=== PATIENT | male | born 1950 | race Caucasian/White ===

== ENCOUNTER 2017-01-18 17:00 | Inpatient (IN) | payer BC, MEDICARE ==
[2017-01-18] MEDS ORDERED: NS 0.9% 1000 ML* 1,000 ML IV SCH (17:45)
[2017-01-18 18:05] LABS: Hematocrit 44 % (42-52); Hemoglobin 14.7 g/dl (14.0-18.0); Mean Corpuscular HGB Conc 34 g/dl (31-36); Mean Corpuscular Hemoglobin 30 pg (27-31); Mean Corpuscular Volume 90 fL (80-94); Mean Platelet Volume 8 um3 (7.4-10.4); Red Blood Count 4.87 10^6/ul (4.0-5.4); Red Cell Distribution Width 14 % (10.5-15); White Blood Count 8.7 10^3/ul (3.5-10.8)
--- NOTE | 2017-01-18 18:16 | RAD ---
INDICATION: Tachycardia COMPARISON: None TECHNIQUE: An AP portable view obtained at 1738 hours is submitted. FINDINGS: Bones/Soft Tissues: There are no acute bony findings. Cardiomediastinal: The cardiomediastinal silhouette is normal. Lungs: There are no infiltrates. Pleura: There are no pleural effusions. Other: None IMPRESSION: NO ACTIVE DISEASE.
[2017-01-18 18:31] LABS: Albumin 4.1 g/dL (3.2-5.2); BUN/Creatinine Ratio 17.5 (8-20); C Reactive Protein 5.32 mg/L (< 5.00); Calcium 9.4 mg/dL (8.6-10.3); EGFR African American 77.4 (>60); EGFR Non-African American 60.2 (>60); Potassium 4.3 mmol/L (3.5-5.0); Total Bilirubin 0.4 mg/dL (0.2-1.0); Total Protein 7.1 g/dL (6.4-8.9)
[2017-01-18 18:41] LABS: Urine Bilirubin Negative (Negative); Urine Glucose Negative (Negative); Urine Nitrite Negative (Negative)
[2017-01-18 19:08] LABS: TSH (Thyroid Stimulating Horm) 3.65 mcIU/mL (0.34-5.60)
[2017-01-18] MEDS ORDERED: Acetaminophen TAB* 325 MG PO PRN (19:40)
[2017-01-18] MEDS ORDERED: Albuterol 2.5 MG/3 ML NEB.SOL* (0.083%) INH PRN (19:40)
[2017-01-18] MEDS ORDERED: Ondansetron INJ* 2 MG/ML VIAL IV PRN (19:40)
[2017-01-18] MEDS ORDERED: CMCS: Melatonin (NF) 3 MG TAB PO PRN (19:40)
[2017-01-18] MEDS ORDERED: Apixaban* 5 MG TAB PO SCH (21:00)
[2017-01-18] MEDS: NS 0.9% 1000 ML* 1,000 ML IV SCH (21:14)
--- NOTE | 2017-01-18 21:52 | HP ---
H&P (Free Text) History and Physical: PCP: Anabell Hawley NP Cardiology: Eleazar Velasquez MD Date/Time: 01/18/20171939 CC: fatigue, SOB HPI: Mr Singh is a 67YO male HX pAFIB successfully cardioverted 01/05 who noted return of fatigue & SOB starting around the 16th and gradually worsening. He had a follow up with Eleazar Velasquez MD cardiology wherein he was found back in AFIB/AFLUT with a rapid response and referred to [facility] [place]. He denies chest pain, N/V, sweats, F/C, focal W/N/T, changes in speech/swallow, or changes in bowel/bladder. PMedHx pAFIB HTN ERMIAS on CPAP GERD metal foreign body L chest Ambulatory Orders Hydrochlorothiazide TAB* [Hydrodiuril TAB*] 25 tab PO DAILY 03/15/12 Omeprazole CAP* [Prilosec CAP* 20 MG] 20 mg PO DAILY 08/04/16 Apixaban* [Eliquis*] 5 mg PO BID 10/25/16 Acetaminophen [Acetaminophen Extra Stren] 500 mg PO Q6HR PRN 10/26/16 Ibuprofen TAB* [Advil TAB*] 200 - 400 tab PO Q6HR PRN 01/04/17 Aspirin EC Low Dose* [Ecotrin EC Low Dose 81 MG*] 81 mg PO DAILY 01/18/17 Allergies No Known Allergies Allergy (Verified 01/12/16 09:56) PSurgHx B inguinal hernia repairs tonsillectomy SocHx: intermittent/social smoking, no alcohol or recreational drugs; lives with his ; 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 Father passed in his 40s from CAD. 11 siblings; 3 passed from CAD, 1 passed of an unknown cancer, 1 passed of complications of diabetes, all but 2 other siblings have passed of uncertain causes ROS: as above, otherwise reviewed and all were negative vitals: Vital Signs Temp 36.8 C 01/18/17 23:19 Pulse 96 01/18/17 23:19 Resp 18 01/18/17 23:19 BP 117/77 01/18/17 23:19 Pulse Ox 97 01/18/17 23:19 Intake & Output 01/18/17 01/18/17 01/19/17 11:59 23:59 11:59 Intake Total 300 Output Total 0 Balance 300 Weight 87.906 kg Intake: IV Fluids 300 Oral 0 Output: Urine 0 Other: # Bowel Movements 0 Constitutional: NAD, normally developed, well-nourished white male HEENM: atraumatic; sclera/conjunctiva: non-icteric/clear; hearing: clinically intact; oropharynx: clear, mucosa moist Neck: soft tissue: non-tender; thyroid: normal Pulmonary: clear to auscultation bilaterally, good aeration, no accessory muscle use CV: IR/IR, normal S1S2, no carotid bruit, no jugular venous distention, 2+ B DP/ PT, no edema Abdominal: soft, non-distended, non-tender, no rebound/guarding/rigidity, normoactive bowel sounds, no hepatosplenomegaly or masses, no costovertebral angle tenderness Musculoskeletal: general: grossly intact; gait: stable Integumental: normal appearance and texture of exposed skin Psychiatric orientation: AA&O to PPS affect: calm mood: cooperative eye contact: good content: reliable responses: timely insight: good to fair Testing: Lab Results 01/18/17 01/18/17 01/18/17 Range/Units 17:57 17:57 17:57 WBC (3.5-10.8) 10^3/ul RBC (4.0-5.4) 10^6/ul Hgb (14.0-18.0) g/dl Hct (42-52) % MCV (80-94) fL MCH (27-31) pg MCHC (31-36) g/dl RDW (10.5-15) % Plt Count (150-450) 10^3/ul MPV (7.4-10.4) um3 Neut % (Auto) (38-83) % Lymph % (Auto) (25-47) % [place]oll[place] % (Auto) (1-9) % Eos % (Auto) (0-6) % Baso % (Auto) (0-2) % Absolute Neuts (auto) (1.5-7.7) 10^3/ul Absolute Lymphs (auto) (1.0-4.8) 10^3/ul Absolute Monos (auto) (0-0.8) 10^3/ul Absolute Eos (auto) (0-0.6) 10^3/ul Absolute Basos (auto) (0-0.2) 10^3/ul Absolute Nucleated RBC 10^3/ul Nucleated RBC % INR (Anticoag Therapy) 0.98 (0.89-1.11) APTT 33.4 (26.0-36.3) seconds D-Dimer, Quantitative < 200 (Less Than 230) ng/mL Sodium 136 (133-145) mmol/L Potassium 4.3 (3.5-5.0) mmol/L Chloride 102 (101-111) mmol/L Carbon Dioxide 28 (22-32) mmol/L Anion Gap 6 (2-11) mmol/L BUN 21 (6-24) mg/dL Creatinine 1.20 H (0.67-1.17) mg/dL Est GFR ( Amer) 77.4 (>60) Est GFR (Non-Af Amer) 60.2 (>60) BUN/Creatinine Ratio 17.5 (8-20) Glucose 86 (70-100) mg/dL Lactic Acid (0.5-2.0) mmol/L Calcium 9.4 (8.6-10.3) mg/dL Magnesium 2.0 (1.9-2.7) mg/dL Total Bilirubin 0.40 (0.2-1.0) mg/dL AST 14 (13-39) U/L ALT 11 (7-52) U/L Alkaline Phosphatase 75 (34-104) U/L Total Creatine Kinase 61 (10-223) U/L CK-MB (CK-2) 2.7 (0.6-6.3) ng/mL Troponin I 0.00 (<0.04) ng/mL C-Reactive Protein 5.32 H (< 5.00) mg/L B-Natriuretic Peptide 96 ( - 100) pg/mL Total Protein 7.1 (6.4-8.9) g/dL Albumin 4.1 (3.2-5.2) g/dL Globulin 3.0 (2-4) g/dL Albumin/Globulin Ratio 1.4 (1-3) Lipase 29 (11.0-82.0) U/L TSH 3.65 (0.34-5.60) mcIU/mL Urine Color Urine Appearance Urine pH (5-9) Ur Specific [place] (1.010-1.030) Urine Protein (Negative) Urine Ketones (Negative) Urine Blood (Negative) Urine Nitrate (Negative) Urine Bilirubin (Negative) Urine Urobilinogen (Negative) Ur Leukocyte Esterase (Negative) Urine Glucose (Negative) 01/18/17 01/18/17 01/18/17 Range/Units 17:57 17:57 18:25 WBC 8.7 (3.5-10.8) 10^3/ul RBC 4.87 (4.0-5.4) 10^6/ul Hgb 14.7 (14.0-18.0) g/dl Hct 44 (42-52) % MCV 90 (80-94) fL MCH 30 (27-31) pg MCHC 34 (31-36) g/dl RDW 14 (10.5-15) % Plt Count 244 (150-450) 10^3/ul MPV 8 (7.4-10.4) um3 Neut % (Auto) 59.9 (38-83) % Lymph % (Auto) 28.1 (25-47) % [place]oll[place] % (Auto) 9.2 H (1-9) % Eos % (Auto) 2.1 (0-6) % Baso % (Auto) 0.7 (0-2) % Absolute Neuts (auto) 5.2 (1.5-7.7) 10^3/ul Absolute Lymphs (auto) 2.5 (1.0-4.8) 10^3/ul Absolute Monos (auto) 0.8 (0-0.8) 10^3/ul Absolute Eos (auto) 0.2 (0-0.6) 10^3/ul Absolute Basos (auto) 0.1 (0-0.2) 10^3/ul Absolute Nucleated RBC 0.01 10^3/ul Nucleated RBC % 0.1 INR (Anticoag Therapy) (0.89-1.11) APTT (26.0-36.3) seconds D-Dimer, Quantitative (Less Than 230) ng/mL Sodium (133-145) mmol/L Potassium (3.5-5.0) mmol/L Chloride (101-111) mmol/L Carbon Dioxide (22-32) mmol/L Anion Gap (2-11) mmol/L BUN (6-24) mg/dL Creatinine (0.67-1.17) mg/dL Est GFR ( Amer) (>60) Est GFR (Non-Af Amer) (>60) BUN/Creatinine Ratio (8-20) Glucose (70-100) mg/dL Lactic Acid 1.0 (0.5-2.0) mmol/L Calcium (8.6-10.3) mg/dL Magnesium (1.9-2.7) mg/dL Total Bilirubin (0.2-1.0) mg/dL AST (13-39) U/L ALT (7-52) U/L Alkaline Phosphatase (34-104) U/L Total Creatine Kinase (10-223) U/L CK-MB (CK-2) (0.6-6.3) ng/mL Troponin I (<0.04) ng/mL C-Reactive Protein (< 5.00) mg/L B-Natriuretic Peptide ( - 100) pg/mL Total Protein (6.4-8.9) g/dL Albumin (3.2-5.2) g/dL Globulin (2-4) g/dL Albumin/Globulin Ratio (1-3) Lipase (11.0-82.0) U/L TSH (0.34-5.60) mcIU/mL Urine Color Yellow Urine Appearance Clear Urine pH 5.0 (5-9) Ur Specific [place] 1.012 (1.010-1.030) Urine Protein Negative (Negative) Urine Ketones Negative (Negative) Urine Blood Negative (Negative) Urine Nitrate Negative (Negative) Urine Bilirubin Negative (Negative) Urine Urobilinogen Negative (Negative) Ur Leukocyte Esterase Negative (Negative) Urine Glucose Negative (Negative) ECG, personally reviewed: AFIB/AFLUT rate 87, no ischemia CXR, personally reviewed: IMPRESSION: NO ACTIVE DISEASE. Impression: 67M presenting with symptomatic AFIB/AFLUT DIAGNOSIS & PLAN Primary symptomatic AFIB/AFLUT : continue apixaban : telemetry : Eleazar Velasquez MD cardiology sent from office, consulted : plan cardioversion in AM : supplemental oxygen : supportive care Secondary HTN : review meds once reconciled ERMIAS : continue home CPAP GERD : review meds once reconciled Admission Rational: observation for AFIB DVTp: apixaban Code Status: full HCP:
[2017-01-18] MEDS: Docusate CAP* 100 MG PO SCH (21:56)
--- NOTE | 2017-01-19 00:04 | ED ---
Elizabeth Sinha Alfonso, scribed for Bartolo Fuentes MD on 01/18/17 at 1804 . Shortness of Breath - HPI Summary HPI Summary: This patient is a 67 year old M presenting [facility] refe[place] from Dr. English (investment sales assistant) accompanied by a female with a chief complaint of SOB since earlier today. He was cardioverted on 01/05/17 for A-Fib. The patient rates the pain 0/10 in severity. Symptoms aggravated by nothing. Symptoms alleviated by nothing. Patient reports tiredness and peripheral neuropathy. Patient denies palpitations, CP, calf swelling, and dizziness. - History of Current Complaint Chief Complaint: EDDysrhythmPalp Time Seen by Provider: 01/18/17 17:37 Hx Obtained From: Patient Onset/Duration: Sudden Onset, Lasting Hours, Still Present Timing: Constant Aggrevating Factors: Nothing Alleviating Factors: Nothing Associated Signs & Symptoms: Negative - Allergy/Home Medications Allergies/Adverse Reactions: Allergies Allergy/AdvReac Type Severity Reaction Status Date / Time No Known Allergies Allergy Verified 01/12/16 09:56 Home Medications: Home Medications Aspirin EC Low Dose* [Ecotrin EC Low Dose 81 MG*] 81 mg PO DAILY 01/18/17 [ History Confirmed 01/18/17] PMH/Surg Hx/FS Hx/Imm Hx Cardiovascular History: Reports: Hx Hypertension Denies: Hx Pacemaker/ICD Respiratory History: Reports: Hx Sleep Apnea - current CPAP user Musculoskeletal History: Reports: Other Musculoskeletal History - chronic pain Sensory History: Reports: Hx Contacts or Glasses Denies: Hx Hearing Aid Opthamlomology History: Reports: Hx Contacts or Glasses Denies: Hx Legally Blind EENT History: Denies: Hx Deafness Neurological History: Reports: Other Neuro Impairments/Disorders - pain clinic pt Psychiatric History: Denies: Hx Panic Disorder - Surgical History Surgery Procedure, Year, and Place: hernia repair x 2,. tonsilectomy,. chest tube left r/t trauma 1968 FROM [facility]Y SEE NOTES - PT OKAY SENT TO 1.5 T Infectious Disease History: No Infectious Disease History: Denies: Traveled Outside the [place] in Last 30 Days - Family History Known Family History: Positive: Cardiac Disease - [place] father - Social History Alcohol Use: None Substance Use Type: Reports: None Smoking Status (MU): Former Smoker Review of Systems Positive: Other - tiredness Negative: Palpitations, Chest Pain Positive: Shortness Of Breath Negative: Edema Neurological: Other - peripheral neuropathy; negative dizziness All Other Systems Reviewed And Are Negative: Yes Physical Exam - Summary Physical Exam Summary: General: well-appearing, no pain distress Skin: warm, color reflects adequate perfusion, dry Head: normal Eyes: EOMI, RUPERTO ENT: normal Neck: supple, nontender Respiratory: CTA, breath sounds present Cardiovascular: IRR Abdomen: soft, nontender Bowel: present Musculoskeletal: normal, strength/ROM intact Neurological: normal, sensory/motor intact, A&O x3 Psychological: affect/mood appropriate Triage Information Reviewed: Yes Vital Signs On Initial Exam: Initial Vitals Temp Pulse Resp BP Pulse Ox 97.4 F 91 20 133/89 93 01/18/17 17:04 01/18/17 17:04 01/18/17 17:04 01/18/17 17:04 01/18/17 17:04 Vital Signs Reviewed: Yes - [place] Coma Scale Coma Scale Total: 15 Diagnostics - Vital Signs Vital Signs Temp Pulse Resp BP Pulse Ox 01/18/17 17:24 89 97 01/18/17 17:04 97.4 F 91 20 133/89 93 - Laboratory Lab Results: Lab Results 01/18/17 01/18/17 01/18/17 Range/Units 17:57 17:57 17:57 WBC (3.5-10.8) 10^3/ul RBC (4.0-5.4) 10^6/ul Hgb (14.0-18.0) g/dl Hct (42-52) % MCV (80-94) fL MCH (27-31) pg MCHC (31-36) g/dl RDW (10.5-15) % Plt Count (150-450) 10^3/ul MPV (7.4-10.4) um3 Neut % (Auto) (38-83) % Lymph % (Auto) (25-47) % Hill % (Auto) (1-9) % Eos % (Auto) (0-6) % Baso % (Auto) (0-2) % Absolute Neuts (auto) (1.5-7.7) 10^3/ul Absolute Lymphs (auto) (1.0-4.8) 10^3/ul Absolute Monos (auto) (0-0.8) 10^3/ul Absolute Eos (auto) (0-0.6) 10^3/ul Absolute Basos (auto) (0-0.2) 10^3/ul Absolute Nucleated RBC 10^3/ul Nucleated RBC % INR (Anticoag Therapy) 0.98 (0.89-1.11) APTT 33.4 (26.0-36.3) seconds D-Dimer, Quantitative < 200 (Less Than 230) ng/mL Sodium 136 (133-145) mmol/L Potassium 4.3 (3.5-5.0) mmol/L Chloride 102 (101-111) mmol/L Carbon Dioxide 28 (22-32) mmol/L Anion Gap 6 (2-11) mmol/L BUN 21 (6-24) mg/dL Creatinine 1.20 H (0.67-1.17) mg/dL Est GFR ( Amer) 77.4 (>60) Est GFR (Non-Af Amer) 60.2 (>60) BUN/Creatinine Ratio 17.5 (8-20) Glucose 86 (70-100) mg/dL Lactic Acid (0.5-2.0) mmol/L Calcium 9.4 (8.6-10.3) mg/dL Magnesium 2.0 (1.9-2.7) mg/dL Total Bilirubin 0.40 (0.2-1.0) mg/dL AST 14 (13-39) U/L ALT 11 (7-52) U/L Alkaline Phosphatase 75 (34-104) U/L Total Creatine Kinase 61 (10-223) U/L CK-MB (CK-2) 2.7 (0.6-6.3) ng/mL Troponin I 0.00 (<0.04) ng/mL C-Reactive Protein 5.32 H (< 5.00) mg/L B-Natriuretic Peptide 96 ( - 100) pg/mL Total Protein 7.1 (6.4-8.9) g/dL Albumin 4.1 (3.2-5.2) g/dL Globulin 3.0 (2-4) g/dL Albumin/Globulin Ratio 1.4 (1-3) Lipase 29 (11.0-82.0) U/L TSH 3.65 (0.34-5.60) mcIU/mL Urine Color Urine Appearance Urine pH (5-9) Ur Specific [place] (1.010-1.030) Urine Protein (Negative) Urine Ketones (Negative) Urine Blood (Negative) Urine Nitrate (Negative) Urine Bilirubin (Negative) Urine Urobilinogen (Negative) Ur Leukocyte Esterase (Negative) Urine Glucose (Negative) 01/18/17 01/18/17 01/18/17 Range/Units 17:57 17:57 18:25 WBC 8.7 (3.5-10.8) 10^3/ul RBC 4.87 (4.0-5.4) 10^6/ul Hgb 14.7 (14.0-18.0) g/dl Hct 44 (42-52) % MCV 90 (80-94) fL MCH 30 (27-31) pg MCHC 34 (31-36) g/dl RDW 14 (10.5-15) % Plt Count 244 (150-450) 10^3/ul MPV 8 (7.4-10.4) um3 Neut % (Auto) 59.9 (38-83) % Lymph % (Auto) 28.1 (25-47) % Hill % (Auto) 9.2 H (1-9) % Eos % (Auto) 2.1 (0-6) % Baso % (Auto) 0.7 (0-2) % Absolute Neuts (auto) 5.2 (1.5-7.7) 10^3/ul Absolute Lymphs (auto) 2.5 (1.0-4.8) 10^3/ul Absolute Monos (auto) 0.8 (0-0.8) 10^3/ul Absolute Eos (auto) 0.2 (0-0.6) 10^3/ul Absolute Basos (auto) 0.1 (0-0.2) 10^3/ul Absolute Nucleated RBC 0.01 10^3/ul Nucleated RBC % 0.1 INR (Anticoag Therapy) (0.89-1.11) APTT (26.0-36.3) seconds D-Dimer, Quantitative (Less Than 230) ng/mL Sodium (133-145) mmol/L Potassium (3.5-5.0) mmol/L Chloride (101-111) mmol/L Carbon Dioxide (22-32) mmol/L Anion Gap (2-11) mmol/L BUN (6-24) mg/dL Creatinine (0.67-1.17) mg/dL Est GFR ( Amer) (>60) Est GFR (Non-Af Amer) (>60) BUN/Creatinine Ratio (8-20) Glucose (70-100) mg/dL Lactic Acid 1.0 (0.5-2.0) mmol/L Calcium (8.6-10.3) mg/dL Magnesium (1.9-2.7) mg/dL Total Bilirubin (0.2-1.0) mg/dL AST (13-39) U/L ALT (7-52) U/L Alkaline Phosphatase (34-104) U/L Total Creatine Kinase (10-223) U/L CK-MB (CK-2) (0.6-6.3) ng/mL Troponin I (<0.04) ng/mL C-Reactive Protein (< 5.00) mg/L B-Natriuretic Peptide ( - 100) pg/mL Total Protein (6.4-8.9) g/dL Albumin (3.2-5.2) g/dL Globulin (2-4) g/dL Albumin/Globulin Ratio (1-3) Lipase (11.0-82.0) U/L TSH (0.34-5.60) mcIU/mL Urine Color Yellow Urine Appearance Clear Urine pH 5.0 (5-9) Ur Specific [place] 1.012 (1.010-1.030) Urine Protein Negative (Negative) Urine Ketones Negative (Negative) Urine Blood Negative (Negative) Urine Nitrate Negative (Negative) Urine Bilirubin Negative (Negative) Urine Urobilinogen Negative (Negative) Ur Leukocyte Esterase Negative (Negative) Urine Glucose Negative (Negative) Result Diagrams: 01/18/17 17:57 01/18/17 17:57 Lab Statement: Any lab studies that have been ordered have been reviewed, and results considered in the medical decision making process. - Radiology CXR Radiology Interpretation Completed By: Radiologist - NO ACTIVE DISEASE. ED physician has reviewed this radiology report and agrees. - EKG 1759 Cardiac Rate: NL - BPM 97 EKG Rhythm: Atrial Fibrillation ST Segment: Normal Course/Dx - Course Course Of Treatment: DISCUSSED WITH DR ENGLISH. PATIENT HAS SYMPTOMATIC ATRIAL FLUTTER. ADMIT HOSPITALIST. NO CRITICAL CARE TIME. - Diagnoses Provider Diagnoses: Atrial flutter, Dyspnea - Physician Notifications Discussed Care of Patient With: Raf Ballesteros Time Discussed With Above Provider: 19:16 Instructed by Provider To: Other - Consulted Dr. Ballesteros (hospitalist) who agrees to admit. Discharge - Discharge Plan Condition: Stable Disposition: ADMITTED TO [facility] documentation as recorded by the Elizabeth renteria Alfonso accurately reflects the service I personally performed and the decisions made by me, Bartolo Fuentes MD.
[2017-01-19] MEDS: Apixaban* 5 MG TAB PO SCH ×2 (05:46→17:51)
[2017-01-19] MEDS: NS 0.9% 1000 ML* 1,000 ML IV SCH (05:47)
[2017-01-19] MEDS: Docusate CAP* 100 MG PO SCH (09:29)
[2017-01-19] MEDS: Aspirin EC Low Dose* 81 MG TAB.EC PO SCH (09:35)
[2017-01-19] MEDS: Omeprazole CAP* 20 MG PO SCH (09:35)
[2017-01-19] MEDS: Hydrochlorothiazide TAB* 25 MG PO SCH (09:35)
[2017-01-19] MEDS ORDERED: Midazolam* 1 MG/ML 5 ML VIAL (5 MG) ONE (12:29)
[2017-01-19] MEDS ORDERED: fentaNYL* 50 MCG/ML 2 ML VIAL (100 MCG VIAL) ONE (12:29)
[2017-01-19] MEDS ORDERED: Naloxone* 0.4 MG/ML 1 ML VIAL ONE (12:29)
[2017-01-19] MEDS ORDERED: Flumazenil* 0.1 MG/ML 5 ML MDV ONE (12:29)
[2017-01-19] MEDS ORDERED: proPAFENone TAB* 150 MG PO SCH (12:49)
--- NOTE | 2017-01-19 16:00 | CONS ---
CC: Dr. Velasquez; Cherelle Hawley NP* CONSULTATION REPORT: DATE OF CONSULT: 01/19/17 REASON FOR CONSULT: Atrial fibrillation. CHIEF COMPLAINT: Shortness of breath. HISTORY OF PRESENT ILLNESS: Mr. Singh is a 67-year-old male with a history of paroxysmal atrial fibrillation, followed by Dr. Velasquez. The patient's atrial fibrillation was initially found in summer by his primary care practitioner, he was asymptomatic. It persisted and the patient was placed on anticoagulation, underwent cardioversion earlier this month. The patient has been doing yard work, raking leaves, and a few days after raking leaves, the patient noted that he was short of breath. An EKG in Dr. Velasquez's office yesterday revealed he is back in atrial fibrillation and the patient was referred for admission and cardioversion. PAST MEDICAL HISTORY: Paroxysmal atrial fibrillation; obstructive sleep apnea, on CPAP; hypertension; reflux; foreign body in the left chest related to an accident in year in high school chopping wood; history of diverticulosis. PAST SURGICAL HISTORY: Includes inguinal hernia repair, tonsillectomy, and removal of piece of metal from the lung, 1966. MEDICATIONS: Outpatient medications include: 1. Hydrochlorothiazide 25 mg a day. 2. Aspirin 81 mg a day. 3. Eliquis 5 mg b.i.d. 4. Albuterol inhaler p.r.n. 5. Colace 200 mg b.i.d. 6. Melatonin 3 mg q.h.s. p.r.n. insomnia. 7. Prilosec 20 mg a day. 8. Zofran p.r.n. 9. Sodium chloride. 10. He uses CPAP nightly. ALLERGIES: The patient has no known medication allergies. FAMILY HISTORY: His father of heart attack at age 50. His mother of "old age" at 78. He has 6 siblings. He had a brother, who of unknown etiology. His sister who had muscular dystrophy and . One sister with coronary artery disease and another sister with diabetes and hypertension and at age 77. A sister who at age 79 of an unknown cancer, then another sister who . SOCIAL HISTORY: The patient is , lives with his . 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 He has been a smoker, ongoing. Rare alcohol use, none recently. REVIEW OF SYSTEMS: A 12-point review of systems was performed. He denies missing any medications. He has been using his CPAP regularly. No recent fevers, chills, sweats. No recent change in bowel or bladder habits. He has been taking his Eliquis faithfully. He denies orthopnea, PND, chest pain or pressure, heaviness, and he is not aware of palpitations, just the shortness of breath with activity. All other review of systems was unremarkable. PHYSICAL EXAM: The patient is 6 feet with 193 pounds with a BMI of 26. Blood pressure currently 116/75; pulse 80s to 90s, irregularly irregular; temperature 98.2; oxygen saturation 98% on room air. General Appearance: Lean, somewhat older gentleman, in no acute distress. Lying at 30 to 40 degrees, comfortable. Psychologically, pleasant and cooperative. Neurologically, awake, alert, oriented to person, place, and time. Cranial nerves II through XII intact. Grossly normal sensory and motor function in the upper and lower extremities, gait not checked. He was examined in the hospital bed. HEENT: Pupils are equal and round. Mucous membranes moist. Oral mucosa unremarkable. Neck: Without appreciable or increased JVP or thyromegaly. Breath sounds were very distant, but clear. No wheezing, rales, or rhonchi. Coronary: S1 and S2, irregularly irregular. No murmurs appreciated. Abdomen: Flat, active bowel sounds, soft. Nontender. No hepatomegaly. Lower extremities were free of edema and lukewarm. Distal pulses were hard to get. DIAGNOSTIC STUDIES/LAB DATA: Echo from 11/18/16, showed ejection fraction of 50 % to 55% with mild right ventricular hypokinesis, biatrial enlargement, mild-to - moderate tricuspid insufficiency, moderate pulmonary hypertension. Transesophageal echo, 10/26/16, showed an ejection fraction of 50% to 55% with spontaneous contrast in the left atrial appendage and decreased velocity in the left atrial appendage, no thrombus noted. He had a patent foramen ovale noted by color Doppler. [id number]-arhz mitral, [id number] tricuspid insufficiency. A 12-lead ECG today confirms atrial fibrillation with a ventricular rate of 95 beats a minute, QRS axis +90, normal intraventricular conduction times, and ST segments are unremarkable. White count 8.7, hemoglobin 14.7, hematocrit 44, platelets 244. INR 0.98, PTT 33.4. Sodium 136, potassium 4.3, chloride 102, bicarb 28, BUN 21, creatinine 1.2, glucose 86. ALT of 11. C-reactive protein 5.32. Troponin 0.00. TSH 3.65. Urinalysis: Specific gravity 1.02, pH of 5. Chest x-ray in the emergency department showed no active disease. Stress test in Dr. Velasquez's office, per verbal report from Dr. Velasquez showed no evidence of ischemia. IMPRESSION: In summary, Mr. Singh is a 67-year-old gentleman, found in atrial fibrillation this summer incidentally, he underwent cardioversion on , but this was only briefly successful and he is now back in atrial fibrillation. PLAN: Electrical cardioversion and initiation of an antiarrhythmic. As per discussion with Dr. Velasquez, propafenone or flecainide are options, I will initiate him on propafenone. Additional recommendations will be made pending his response to the above measures. [id number]/[facility] #: [id number] [facility] [place]
--- NOTE | 2017-01-19 17:41 | PN ---
Subjective Date of Service: 01/19/17 Interval History: Patient was asymptomatic during this episode of atrial fib/flutter. Objective Active Medications: Acetaminophen (Tylenol Tab*) 650 mg PO Q6H PRN PRN Reason: FEVER/PAIN Albuterol (Ventolin 2.5 Mg/3 Ml Neb.Kendy*) 2.5 mg INH Q2H PRN PRN Reason: SOB/WHEEZING Apixaban (Eliquis*) 5 mg PO 0600,1800 [facility] Last Admin: 01/19/17 05:46 Dose: 5 mg Aspirin (Aspirin Ec Low Dose*) 81 mg PO DAILY [facility] Last Admin: 01/19/17 09:35 Dose: 81 mg Hydrochlorothiazide (Hydrodiuril Tab*) 25 mg PO DAILY [facility] Last Admin: 01/19/17 09:35 Dose: 25 mg Omeprazole (Prilosec Cap*) 20 mg PO DAILY@0730 [facility] Last Admin: 01/19/17 09:35 Dose: 20 mg Propafenone HCl (Rythmol*) 150 mg PO Q12HR [facility] Vital Signs 01/19/17 14:06 Temperature 97.0 F Pulse Rate 62 Respiratory 16 Rate Blood Pressure 118/74 (mmHg) O2 Sat by Pulse 100 Oximetry Oxygen Devices in Use Now: None Appearance: Alert, sitting on the edge of his bed. In good spirits. Looks comfortable. Eyes: No Scleral Icterus Neck: NL Appearance and Movements; NL JVP, No Thyroid Enlargement, Masses Respiratory: Symmetrical Chest Expansion and Respiratory Effort, Clear to Auscultation, Clear to Percussion Cardiovascular: NL Sounds; No Murmurs; No JVD, RRR, No Edema Extremities: No Edema, No Clubbing, Cyanosis, - Skin: No Rash or Ulcers, No Nodules or Sclerosis, - Neurological: Alert and Oriented x 3, NL Sensation Result Diagrams: 01/18/17 17:57 01/18/17 17:57 Additional Lab and Data: Lab Results 01/18/17 01/18/17 01/18/17 Range/Units 17:57 17:57 17:57 WBC (3.5-10.8) 10^3/ul RBC (4.0-5.4) 10^6/ul Hgb (14.0-18.0) g/dl Hct (42-52) % MCV (80-94) fL MCH (27-31) pg MCHC (31-36) g/dl RDW (10.5-15) % Plt Count (150-450) 10^3/ul MPV (7.4-10.4) um3 Neut % (Auto) (38-83) % Lymph % (Auto) (25-47) % [place] % (Auto) (1-9) % Eos % (Auto) (0-6) % Baso % (Auto) (0-2) % Absolute Neuts (auto) (1.5-7.7) 10^3/ul Absolute Lymphs (auto) (1.0-4.8) 10^3/ul Absolute Monos (auto) (0-0.8) 10^3/ul Absolute Eos (auto) (0-0.6) 10^3/ul Absolute Basos (auto) (0-0.2) 10^3/ul Absolute Nucleated RBC 10^3/ul Nucleated RBC % INR (Anticoag Therapy) 0.98 (0.89-1.11) APTT 33.4 (26.0-36.3) seconds D-Dimer, Quantitative < 200 (Less Than 230) ng/mL Sodium 136 (133-145) mmol/L Potassium 4.3 (3.5-5.0) mmol/L Chloride 102 (101-111) mmol/L Carbon Dioxide 28 (22-32) mmol/L Anion Gap 6 (2-11) mmol/L BUN 21 (6-24) mg/dL Creatinine 1.20 H (0.67-1.17) mg/dL Est GFR ( Amer) 77.4 (>60) Est GFR (Non-Af Amer) 60.2 (>60) BUN/Creatinine Ratio 17.5 (8-20) Glucose 86 (70-100) mg/dL Lactic Acid (0.5-2.0) mmol/L Calcium 9.4 (8.6-10.3) mg/dL Magnesium 2.0 (1.9-2.7) mg/dL Total Bilirubin 0.40 (0.2-1.0) mg/dL AST 14 (13-39) U/L ALT 11 (7-52) U/L Alkaline Phosphatase 75 (34-104) U/L Total Creatine Kinase 61 (10-223) U/L CK-MB (CK-2) 2.7 (0.6-6.3) ng/mL Troponin I 0.00 (<0.04) ng/mL C-Reactive Protein 5.32 H (< 5.00) mg/L B-Natriuretic Peptide 96 ( - 100) pg/mL Total Protein 7.1 (6.4-8.9) g/dL Albumin 4.1 (3.2-5.2) g/dL Globulin 3.0 (2-4) g/dL Albumin/Globulin Ratio 1.4 (1-3) Lipase 29 (11.0-82.0) U/L TSH 3.65 (0.34-5.60) mcIU/mL Urine Color Urine Appearance Urine pH (5-9) Ur Specific [place] (1.010-1.030) Urine Protein (Negative) Urine Ketones (Negative) Urine Blood (Negative) Urine Nitrate (Negative) Urine Bilirubin (Negative) Urine Urobilinogen (Negative) Ur Leukocyte Esterase (Negative) Urine Glucose (Negative) 01/18/17 01/18/17 01/18/17 Range/Units 17:57 17:57 18:25 WBC 8.7 (3.5-10.8) 10^3/ul RBC 4.87 (4.0-5.4) 10^6/ul Hgb 14.7 (14.0-18.0) g/dl Hct 44 (42-52) % MCV 90 (80-94) fL MCH 30 (27-31) pg MCHC 34 (31-36) g/dl RDW 14 (10.5-15) % Plt Count 244 (150-450) 10^3/ul MPV 8 (7.4-10.4) um3 Neut % (Auto) 59.9 (38-83) % Lymph % (Auto) 28.1 (25-47) % Gaston % (Auto) 9.2 H (1-9) % Eos % (Auto) 2.1 (0-6) % Baso % (Auto) 0.7 (0-2) % Absolute Neuts (auto) 5.2 (1.5-7.7) 10^3/ul Absolute Lymphs (auto) 2.5 (1.0-4.8) 10^3/ul Absolute Monos (auto) 0.8 (0-0.8) 10^3/ul Absolute Eos (auto) 0.2 (0-0.6) 10^3/ul Absolute Basos (auto) 0.1 (0-0.2) 10^3/ul Absolute Nucleated RBC 0.01 10^3/ul Nucleated RBC % 0.1 INR (Anticoag Therapy) (0.89-1.11) APTT (26.0-36.3) seconds D-Dimer, Quantitative (Less Than 230) ng/mL Sodium (133-145) mmol/L Potassium (3.5-5.0) mmol/L Chloride (101-111) mmol/L Carbon Dioxide (22-32) mmol/L Anion Gap (2-11) mmol/L BUN (6-24) mg/dL Creatinine (0.67-1.17) mg/dL Est GFR ( Amer) (>60) Est GFR (Non-Af Amer) (>60) BUN/Creatinine Ratio (8-20) Glucose (70-100) mg/dL Lactic Acid 1.0 (0.5-2.0) mmol/L Calcium (8.6-10.3) mg/dL Magnesium (1.9-2.7) mg/dL Total Bilirubin (0.2-1.0) mg/dL AST (13-39) U/L ALT (7-52) U/L Alkaline Phosphatase (34-104) U/L Total Creatine Kinase (10-223) U/L CK-MB (CK-2) (0.6-6.3) ng/mL Troponin I (<0.04) ng/mL C-Reactive Protein (< 5.00) mg/L B-Natriuretic Peptide ( - 100) pg/mL Total Protein (6.4-8.9) g/dL Albumin (3.2-5.2) g/dL Globulin (2-4) g/dL Albumin/Globulin Ratio (1-3) Lipase (11.0-82.0) U/L TSH (0.34-5.60) mcIU/mL Urine Color Yellow Urine Appearance Clear Urine pH 5.0 (5-9) Ur Specific [place] 1.012 (1.010-1.030) Urine Protein Negative (Negative) Urine Ketones Negative (Negative) Urine Blood Negative (Negative) Urine Nitrate Negative (Negative) Urine Bilirubin Negative (Negative) Urine Urobilinogen Negative (Negative) Ur Leukocyte Esterase Negative (Negative) Urine Glucose Negative (Negative) Assess/Plan/Problems-Billing Assessment: - Patient Problems (1) Atrial fib/flutter, transient Current Visit: Yes Status: Acute Code(s): OJD5494 - SNOMED Code(s): 568439845 Comment: Successful cardioversion 01/19, required 2 shocks. His second cardioversion. He was not aware of palpitations but had increased LEBLANC, less stamina, was tired for past week or so. First dose propafenone 1430, had V-tach 7 beats 1637. Dose reduced by Dr. Milian to 150 mg bid. (2) ERMIAS on CPAP Current Visit: Yes Status: Acute Code(s): G47.33 - OBSTRUCTIVE SLEEP APNEA ( ADULT) (PEDIATRIC); Z99.89 - DEPENDENCE ON OTHER ENABLING MACHINES AND DEVICES SNOMED Code(s): 14712685 Comment: Patient brought in his CPAP, uses it every night for the duration of his sleep. (3) Tobacco abuse Current Visit: Yes Status: Acute Code(s): Z72.0 - TOBACCO USE SNOMED Code( s): 837750353 Comment: Pt states last cigarette 3 weeks ago. Pt advised to quit smoking and avoid second hand smoke. (4) HTN (hypertension) Current Visit: Yes Status: Acute Code(s): I10 - ESSENTIAL (PRIMARY) HYPERTENSION SNOMED Code(s): 48169353 Comment: Continue thiazide (5) GERD (gastroesophageal reflux disease) Current Visit: Yes Status: Acute Code(s): K21.9 - GASTRO-ESOPHAGEAL REFLUX DISEASE WITHOUT ESOPHAGITIS SNOMED Code(s): 663629224 Comment: Continue omeprazole.
[2017-01-19] MEDS: proPAFENone TAB* 150 MG PO SCH (23:11)
--- NOTE | 2017-01-19 23:55 | CARD ---
CC: Dr. Velasquez* ELECTRICAL CARDIOVERSION NOTE: DATE OF CARDIOVERSION: 01/19/17 PREPROCEDURE DIAGNOSIS: Atrial fibrillation. POSTPROCEDURE DIAGNOSIS: Atrial fibrillation. PROCEDURE: Electrical cardioversion. PROCEDURE IN DETAIL: The indications, risks, and benefits of the procedure were discussed with the patient in the presence of his . They were both amenable to proceeding. He said he has been faithful with his Eliquis. AP patches were applied and a time-out procedure was called. The patient received a total of 5 mg of Versed and 50 mcg of fentanyl. After that, a 120 joules of energy was delivered across the chest wall with AP patches with successful cardioversion; however, this did not hold more than a few seconds. The procedure was repeated with 200 joules of energy and was successful and maintained. CONCLUSION: Successful cardioversion requiring 2 shocks. The patient's post recovery period was complicated by mild apnea, which responded to coaching. No other complications were noted. He was hemodynamically stable throughout with normal saturations, blood pressure and heart rate. A 12 lead ECG was pending. [id number]/[facility] #: [id number] [facility]
[2017-01-20] MEDS: Apixaban* 5 MG TAB PO SCH ×2 (05:32→18:18)
[2017-01-20] MEDS ORDERED: Influenza VAC *QUAD* 2017-18* 0.5 ML SYRINGE IM ONE (09:00)
[2017-01-20] MEDS: Omeprazole CAP* 20 MG PO SCH (09:14)
[2017-01-20] MEDS: Aspirin EC Low Dose* 81 MG TAB.EC PO SCH (09:14)
[2017-01-20] MEDS: Hydrochlorothiazide TAB* 25 MG PO SCH (09:14)
[2017-01-20] MEDS: proPAFENone TAB* 150 MG PO SCH ×2 (09:15→20:58)
--- NOTE | 2017-01-20 12:12 | PN ---
Subjective Date of Service: 01/20/17 Interval History: NO c/o. Objective Active Medications: Acetaminophen (Tylenol Tab*) 650 mg PO Q6H PRN PRN Reason: FEVER/PAIN Albuterol (Ventolin 2.5 Mg/3 Ml Neb.Kendy*) 2.5 mg INH Q2H PRN PRN Reason: SOB/WHEEZING Apixaban (Eliquis*) 5 mg PO 0600,1800 [facility] Last Admin: 01/20/17 05:32 Dose: 5 mg Aspirin (Aspirin Ec Low Dose*) 81 mg PO DAILY [facility] Last Admin: 01/20/17 09:14 Dose: 81 mg Hydrochlorothiazide (Hydrodiuril Tab*) 25 mg PO DAILY [facility] Last Admin: 01/20/17 09:14 Dose: 25 mg Omeprazole (Prilosec Cap*) 20 mg PO DAILY@0730 [facility] Last Admin: 01/20/17 09:14 Dose: 20 mg Propafenone HCl (Rythmol*) 150 mg PO Q12HR [facility] Last Admin: 01/20/17 09:15 Dose: 150 mg Vital Signs 01/19/17 01/19/17 01/19/17 14:06 15:42 19:33 Temperature 97.0 F 97.7 F 98.0 F Pulse Rate 62 80 85 Respiratory 16 20 20 Rate Blood Pressure 118/74 100/62 101/67 (mmHg) O2 Sat by Pulse 100 98 98 Oximetry 01/19/17 01/19/17 01/20/17 19:50 23:45 03:25 Temperature 98.2 F 98.2 F Pulse Rate 75 79 Respiratory 16 20 20 Rate Blood Pressure 105/64 108/69 (mmHg) O2 Sat by Pulse 97 98 Oximetry 01/20/17 01/20/17 01/20/17 07:26 08:00 09:37 Temperature 97.4 F Pulse Rate 71 68 Respiratory 20 20 14 Rate Blood Pressure 122/80 (mmHg) O2 Sat by Pulse 97 98 Oximetry 01/20/17 11:27 Temperature 98.2 F Pulse Rate 74 Respiratory 16 Rate Blood Pressure 108/76 (mmHg) O2 Sat by Pulse 99 Oximetry Oxygen Devices in Use Now: None Appearance: Alert, partly up in bed. In good spirits. Looks comfortable. Eyes: No Scleral Icterus Extremities: No Edema, No Clubbing, Cyanosis, - Skin: No Rash or Ulcers, No Nodules or Sclerosis, - Neurological: Alert and Oriented x 3, NL Sensation Result Diagrams: 01/18/17 17:57 01/18/17 17:57 Additional Lab and Data: Lab Results 01/18/17 01/18/17 01/18/17 Range/Units 17:57 17:57 17:57 WBC (3.5-10.8) 10^3/ul RBC (4.0-5.4) 10^6/ul Hgb (14.0-18.0) g/dl Hct (42-52) % MCV (80-94) fL MCH (27-31) pg MCHC (31-36) g/dl RDW (10.5-15) % Plt Count (150-450) 10^3/ul MPV (7.4-10.4) um3 Neut % (Auto) (38-83) % Lymph % (Auto) (25-47) % Harris % (Auto) (1-9) % Eos % (Auto) (0-6) % Baso % (Auto) (0-2) % Absolute Neuts (auto) (1.5-7.7) 10^3/ul Absolute Lymphs (auto) (1.0-4.8) 10^3/ul Absolute Monos (auto) (0-0.8) 10^3/ul Absolute Eos (auto) (0-0.6) 10^3/ul Absolute Basos (auto) (0-0.2) 10^3/ul Absolute Nucleated RBC 10^3/ul Nucleated RBC % INR (Anticoag Therapy) 0.98 (0.89-1.11) APTT 33.4 (26.0-36.3) seconds D-Dimer, Quantitative < 200 (Less Than 230) ng/mL Sodium 136 (133-145) mmol/L Potassium 4.3 (3.5-5.0) mmol/L Chloride 102 (101-111) mmol/L Carbon Dioxide 28 (22-32) mmol/L Anion Gap 6 (2-11) mmol/L BUN 21 (6-24) mg/dL Creatinine 1.20 H (0.67-1.17) mg/dL Est GFR ( Amer) 77.4 (>60) Est GFR (Non-Af Amer) 60.2 (>60) BUN/Creatinine Ratio 17.5 (8-20) Glucose 86 (70-100) mg/dL Lactic Acid (0.5-2.0) mmol/L Calcium 9.4 (8.6-10.3) mg/dL Magnesium 2.0 (1.9-2.7) mg/dL Total Bilirubin 0.40 (0.2-1.0) mg/dL AST 14 (13-39) U/L ALT 11 (7-52) U/L Alkaline Phosphatase 75 (34-104) U/L Total Creatine Kinase 61 (10-223) U/L CK-MB (CK-2) 2.7 (0.6-6.3) ng/mL Troponin I 0.00 (<0.04) ng/mL C-Reactive Protein 5.32 H (< 5.00) mg/L B-Natriuretic Peptide 96 ( - 100) pg/mL Total Protein 7.1 (6.4-8.9) g/dL Albumin 4.1 (3.2-5.2) g/dL Globulin 3.0 (2-4) g/dL Albumin/Globulin Ratio 1.4 (1-3) Lipase 29 (11.0-82.0) U/L TSH 3.65 (0.34-5.60) mcIU/mL Urine Color Urine Appearance Urine pH (5-9) Ur Specific [place] (1.010-1.030) Urine Protein (Negative) Urine Ketones (Negative) Urine Blood (Negative) Urine Nitrate (Negative) Urine Bilirubin (Negative) Urine Urobilinogen (Negative) Ur Leukocyte Esterase (Negative) Urine Glucose (Negative) 01/18/17 01/18/17 01/18/17 Range/Units 17:57 17:57 18:25 WBC 8.7 (3.5-10.8) 10^3/ul RBC 4.87 (4.0-5.4) 10^6/ul Hgb 14.7 (14.0-18.0) g/dl Hct 44 (42-52) % MCV 90 (80-94) fL MCH 30 (27-31) pg MCHC 34 (31-36) g/dl RDW 14 (10.5-15) % Plt Count 244 (150-450) 10^3/ul MPV 8 (7.4-10.4) um3 Neut % (Auto) 59.9 (38-83) % Lymph % (Auto) 28.1 (25-47) % Harris % (Auto) 9.2 H (1-9) % Eos % (Auto) 2.1 (0-6) % Baso % (Auto) 0.7 (0-2) % Absolute Neuts (auto) 5.2 (1.5-7.7) 10^3/ul Absolute Lymphs (auto) 2.5 (1.0-4.8) 10^3/ul Absolute Monos (auto) 0.8 (0-0.8) 10^3/ul Absolute Eos (auto) 0.2 (0-0.6) 10^3/ul Absolute Basos (auto) 0.1 (0-0.2) 10^3/ul Absolute Nucleated RBC 0.01 10^3/ul Nucleated RBC % 0.1 INR (Anticoag Therapy) (0.89-1.11) APTT (26.0-36.3) seconds D-Dimer, Quantitative (Less Than 230) ng/mL Sodium (133-145) mmol/L Potassium (3.5-5.0) mmol/L Chloride (101-111) mmol/L Carbon Dioxide (22-32) mmol/L Anion Gap (2-11) mmol/L BUN (6-24) mg/dL Creatinine (0.67-1.17) mg/dL Est GFR ( Amer) (>60) Est GFR (Non-Af Amer) (>60) BUN/Creatinine Ratio (8-20) Glucose (70-100) mg/dL Lactic Acid 1.0 (0.5-2.0) mmol/L Calcium (8.6-10.3) mg/dL Magnesium (1.9-2.7) mg/dL Total Bilirubin (0.2-1.0) mg/dL AST (13-39) U/L ALT (7-52) U/L Alkaline Phosphatase (34-104) U/L Total Creatine Kinase (10-223) U/L CK-MB (CK-2) (0.6-6.3) ng/mL Troponin I (<0.04) ng/mL C-Reactive Protein (< 5.00) mg/L B-Natriuretic Peptide ( - 100) pg/mL Total Protein (6.4-8.9) g/dL Albumin (3.2-5.2) g/dL Globulin (2-4) g/dL Albumin/Globulin Ratio (1-3) Lipase (11.0-82.0) U/L TSH (0.34-5.60) mcIU/mL Urine Color Yellow Urine Appearance Clear Urine pH 5.0 (5-9) Ur Specific [place] 1.012 (1.010-1.030) Urine Protein Negative (Negative) Urine Ketones Negative (Negative) Urine Blood Negative (Negative) Urine Nitrate Negative (Negative) Urine Bilirubin Negative (Negative) Urine Urobilinogen Negative (Negative) Ur Leukocyte Esterase Negative (Negative) Urine Glucose Negative (Negative) Assess/Plan/Problems-Billing Assessment: - Patient Problems (1) Atrial fib/flutter, transient Current Visit: Yes Status: Acute Code(s): YXM9801 - SNOMED Code(s): 509068973 Comment: Successful cardioversion 01/19, required 2 shocks. His second cardioversion. He was not aware of palpitations but had increased LEBLANC, less stamina, was tired for past week or so. First dose propafenone 01/19/17, 1430 hrs, had V-tach 7 beats 1637. Dose reduced by Dr. Milian to 150 mg bid. No further V-tach found on tele. In NSR 01/20. (2) ERMIAS on CPAP Current Visit: Yes Status: Acute Code(s): G47.33 - OBSTRUCTIVE SLEEP APNEA ( ADULT) (PEDIATRIC); Z99.89 - DEPENDENCE ON OTHER ENABLING MACHINES AND DEVICES SNOMED Code(s): 21343588 Comment: Patient brought in his CPAP, uses it every night for the duration of his sleep. (3) Tobacco abuse Current Visit: Yes Status: Acute Code(s): Z72.0 - TOBACCO USE SNOMED Code( s): 400223931 Comment: Pt states last cigarette 3 weeks ago. Pt advised to quit smoking and avoid second hand smoke. (4) HTN (hypertension) Current Visit: Yes Status: Acute Code(s): I10 - ESSENTIAL (PRIMARY) HYPERTENSION SNOMED Code(s): 38306549 Comment: Continue thiazide (5) GERD (gastroesophageal reflux disease) Current Visit: Yes Status: Acute Code(s): K21.9 - GASTRO-ESOPHAGEAL REFLUX DISEASE WITHOUT ESOPHAGITIS SNOMED Code(s): 599562342 Comment: Continue omeprazole. Status and Disposition: Anticipate discharge 01/21/17.
[2017-01-21] MEDS: Apixaban* 5 MG TAB PO SCH (05:56)
[2017-01-21 07:46] VITALS: BP 119/76
--- NOTE | 2017-01-21 07:46 | PN ---
Progress Note - Progress Note Date of Service: 01/21/17 Note: Time spent on discharge 40 minutes.
[2017-01-21] MEDS: proPAFENone TAB* 150 MG PO SCH (08:10)
[2017-01-21] MEDS: Aspirin EC Low Dose* 81 MG TAB.EC PO SCH (08:10)
[2017-01-21] MEDS: Hydrochlorothiazide TAB* 25 MG PO SCH (08:10)
[2017-01-21] MEDS: Omeprazole CAP* 20 MG PO SCH (08:11)
--- NOTE | 2017-01-21 21:39 | DS ---
CC: Dr. Velasquez; Cherelle Hawley, CREAM SEPARATOR OPERATOR DISCHARGE SUMMARY: DATE OF ADMISSION: DATE OF DISCHARGE: 01/21/17 HISTORY OF PRESENT ILLNESS: This 67-year-old man was admitted because of atrial fibrillation. He h ad come to his regularly scheduled appointment with Dr. Velasquez on the day of admission. He had n o symptoms. This is not unusual for him. He generally is not at all aware of atrial fibrillation. He has no lightheadedness, palpitations, syncope or other symptoms. He was referred to the emergen cy room. He was placed on a monitor. He had cardioversion that required 2 shocks to convert him to normal sinus rhythm. I note this is his second cardioversion. He was started on propafenone. Aft er about 2 hours and 7 minutes after the first dose of propafenone, he had 7 beats of V-tach. The d ose was decreased from 225 to 150 mg. Following that, he had no ventricular ectopy. He remained in normal sinus rhythm. He had occasional PACs on the monitor. He felt quite well. He will be disch arged with followup with Dr. Velasquez and Cherelle Hawley. FINAL DIAGNOSES: 1. Atrial fibrillation/flutter, resolved. 2. Obstructive sleep apnea. 3. Tobacco abuse. 4. Hypertension. 5. Gastroesophageal reflux disease. DISCHARGE MEDICATIONS: 1. Propafenone 150 mg every 12 hours. 2. Hydrochlorothiazide 25 mg daily. 3. Omeprazole 20 mg daily. 4. Apixaban 5 mg t.i.d. 5. Acetaminophen 500 mg every 6 hours p.r.n. 6. Aspirin 81 mg daily. [id number]/[facility] #: [id number]
== END 2017-01-21 08:55 | disposition home or self-care (01) | DRG 201 ==
LOC: ED 17:00 → MEDTELE 19:38 → OBSVTOIN 01-19 13:01
PROVIDERS: ADMIT Hospitalist; ATTEND Internal Medicine
PROC: 5A2204Z Restoration of Cardiac Rhythm, Single (ICD-10-PCS; principal; 2017-01-19 11:45)
DX: I48.0 Paroxysmal atrial fibrillation (principal); Q21.1 Atrial septal defect; I08.1 Rheumatic disorders of both mitral and tricuspid valves; I27.20 Pulmonary hypertension, unspecified; I48.92 Unspecified atrial flutter; I10 Essential (primary) hypertension; G47.33 Obstructive sleep apnea (adult) (pediatric); G89.29 Other chronic pain; R40.2412 Glasgow coma scale score 13-15, at arrival to emergency department; K21.9 Gastro-esophageal reflux disease without esophagitis; K57.90 Diverticulosis of intestine, part unspecified, without perforation or abscess without bleeding; F17.210 Nicotine dependence, cigarettes, uncomplicated; Z79.82 Long term (current) use of aspirin; Z79.01 Long term (current) use of anticoagulants; Z82.49 Family history of ischemic heart disease and other diseases of the circulatory system; Z83.3 Family history of diabetes mellitus; Z23 Encounter for immunization; Z72.89 Other problems related to lifestyle
CPT/HCPCS: 36415; 71010; 80053; 81003; 82550; 82553; 83605; 83690; 83735; 83880; 84443; 84484; 85025; 85379; 85610; 85730; 86140; 90686; 92960; 93005; 99156; A9270-GY; G0378; J2250; J2310; J3010

== ENCOUNTER 2018-08-12 07:19 | Emergency (ER) | payer BC, MEDICARE ==
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
--- OUTSIDE RECORDS SUMMARY | 2018-08-12 07:26 | XMS REPORT | Continuity of Care Document ---
:1950 External Reference #:[id number] Author Name Tessie Peña Care Team Providers Name Role Phone Bindu Vargas MD Primary Care Physician Unavailable Payers Date Identification Numbers Payment Provider Subscriber Effective: 2016 Policy Number: [id number] [employer] Ani Friends PayID: [id number] [address] [address] Policy Number: [id number] Medicare Salma B Friends PayID: [id number] [address] [place] [address] Effective: 2013 Policy Number: [id number] Medicare Salma B Friends Expires: 2018 PayID: [id number] [address] [place] [address] Effective: 2010 Policy Number: [id number] [employer] [place] Ani Friends Expires: 2012 Group Name: [employer] [address] PayID: [id number] [address] Effective: 2008 Policy Number: [id number] [facility] Ppo Salma B Friends Expires: 2010 [facility] [address] Pay[address]: [id number] [address] [address] Advance Directives Type Date Description Status Comment Other Directive 10/11/2016 Health Care Proxy Current and Verified Problems Active Problems Provider Date Benign essential hypertension Italo Hawley, N.P. Onset: 02/12/2011 Obstructive sleep apnea syndrome Italo Hawley, N.PTru Onset: 02/12/2011 Essential hypertension Italo Hawley, N.P. Onset: 04/08/2015 Inflammatory and toxic neuropathy Richard Lucero MD Onset: 12/25/2015 Idiopathic peripheral neuropathy Richard Lucero MD Onset: 02/03/2017 Atrial flutter Marianna Milian M.D. Onset: 09/09/2017 Family History Date Family Member(s) Observation Comments General Unknown Father due to NM () - age 50's Mother due to Unknown Causes () - "old age" age 78 First Son Healthy First Daughter Healthy Siblings 6 1 Living Sister, 1 Living Brother 1 Brother - unknown cause, 1 Sister , Muscular Dystrophy, 1 Sister CAD, Pneumonia, 1 Sister from ? - DM, HTN age 77, 1 Sister cancer, (unknown origin, age 79, 1 Sister ? 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 05/24/2017 225mg Tablets three times a Carmen Velasquez day Metoprolol Tartrate 1 tab by mouth 180tabs Qutaybeh S. 05/24/2017 25mg Tablets twice a day Carmen Velasquez Alendronate Sodium One po once 4tabs M81.0 Italo Hawley, 02/15/2017 70mg Tablets weekly N.P. Eliquis 1 by mouth 60tabs Qutaybeh S. 10/11/2016 5mg Tablets twice a day Carmen Velasquez Cpap Mask And Supplies use nightly 1units G47.33 Italo Hawley, 04/09/2016 Device with cpap N.P. machine icd 10: g47.33 Hydrochlorothiazide take 1 tablet 30tabs Italo Hawley, 10/15/2011 25mg Tablets once daily N.P. Cpap Unknown Centrum Silver 1 by mouth Unknown Tablets every day Calcium 600+D High Potency 1 by mouth Unknown daily [id number] Tablets Acetaminophen 1 every 6 Unknown 500mg Tablets hours as needed for pain Omeprazole 1 by mouth 30tabs Italo Hawley, 20mg Tablets DR every day N.P. History Medications Propafenone HCL one po three times 90tabs Qutaybeh S. 02/15/2017 - 150mg a day Carmen Velasquez 05/24/2017 Tablets Doxycycline Hyclate 2 tablets by mouth 2tabs Italo Hawley, 08/17/2013 - N.P. 08/18/2013 100mg Tablets Medrol Dosepak follow package 1tabs Berny Gutierrez, 06/19/2010 - 4mg luz Morales 08/12/2010 Tablets take with food Vicodin 1-2 by mouth every 30tabs Abril Flanagan M.D., 03/17/2010 - 5-500mg 4-6 hours and FACP 05/26/2010 Tablets needed for pain Flexeril 1 tablet three 30tabs Abril Flanagan M.D., 03/17/2010 - 5mg Tablets times a day as FACP 05/26/2010 needed HCTZ 1 tablet daily 30units Abril Flanagan M.D., 11/17/2009 - 25mg. FACP 10/02/2013 Ibuprofen 1-2 Tabs prn Pain Unknown - 200mg (rare use) 01/17/2017 Mario Aspirin Ec Low 1 po qd 100tabs Unknown - Dose 08/25/[address] Propafenone HCL 1 by mouth twice a Unknown - 150mg day 02/15/2017 Tablets Immunizations CPT Code Status Date Vaccine Reaction Lot # [id number] Given 04/21/2018 Influenza Virus Vaccine, [id number] Quadrivalent, Split, Preservative Free [id number] Given 10/11/2016 Pneumonia Vaccine no immediate reaction. [id number] Given 10/07/2015 Pneumococcal Conjugate [id number] Vaccine 13 Valent For Intramuscular Use [id number] Given 02/16/2012 Fluvirin Im 3Yrs And Older [id number] [id number] Given 04/22/2008 Tdap - Tetanus/Diptheria/Acellular Pertussis Vital Signs Date Vital Result Comment 08/02/2018 1:43pm Height 71 inches 5'11" Weight 207.00 lb Heart Rate 62 /min BP Systolic Sitting 104 mmHg Lue large cuff BP Diastolic Sitting 74 mmHg Lue large cuff Respiratory Rate 16 /min O2 % BldC Oximetry 96 % On Ra BMI (Body Mass Index) 28.9 kg/m2 04/27/2018 1:42pm Height 71 inches 5'11" Weight 209.12 lb Heart Rate 58 /min BP Systolic Sitting 120 mmHg Lue large cuff BP Diastolic Sitting 76 mmHg Lue large cuff Respiratory Rate 12 /min O2 % BldC Oximetry 96 % BMI (Body Mass Index) 29.2 kg/m2 Neck Circumference in inches 15 04/21/2018 9:56am Height 71 inches 5'11" Weight 208.00 lb with shoes Heart Rate 61 /min BP Systolic 126 mmHg BP Diastolic 76 mmHg O2 % BldC Oximetry 97 % BMI (Body Mass Index) 29.0 kg/m2 01/09/2018 8:32am Height 71 inches 5'11" Weight 210.50 lb w/shoes Heart Rate 52 /min BP Systolic Sitting 122 mmHg Lue reg cuff BP Diastolic Sitting 80 mmHg Lue reg cuff BMI (Body Mass Index) 29.4 kg/m2 Ejection Fraction 50-55% Echo 11/18/16 10/14/2017 1:32pm Height 71 inches 5'11" Weight 207.00 lb Heart Rate 95 /min BP Systolic 120 mmHg BP Diastolic 70 mmHg Body Temperature 97.9 F O2 % BldC Oximetry 96 % BMI (Body Mass Index) 28.9 kg/m2 10/05/2017 12:59pm Height 71 inches 5'11" Weight 205.50 lb w/ shoes Heart Rate 60 /min BP Systolic 134 mmHg lue lrg cuff BP Diastolic 74 mmHg lue lrg cuff BMI (Body Mass Index) 28.7 kg/m2 Ejection Fraction 50-55% Echo 11/18/2016 09/09/2017 1:14pm Height 71 inches 5'11" Weight 206.00 lb w/ shoes Heart Rate 100 /min BP Systolic Sitting 104 mmHg Rue reg cuff BP Diastolic Sitting 74 mmHg Rue reg cuff BP Systolic Standing 104 mmHg Rue BP Diastolic Standing 74 mmHg Rue Respiratory Rate 16 /min BMI (Body Mass Index) 28.7 kg/m2 Ejection Fraction 50-55% 11/18/16 echo 08/26/2017 8:25am Height 71 inches 5'11" Weight 214.00 lb w/ shoes Heart Rate 58 /min reg BP Systolic Sitting 114 mmHg Rue lg cuff BP Diastolic Sitting 76 mmHg Rue lg cuff Respiratory Rate 16 /min BMI (Body Mass Index) 29.8 kg/m2 Ejection Fraction 50-55% as of 10/2016 echo 05/11/2017 2:45pm Height 71 inches 5'11" Weight 203.25 lb with shoes Heart Rate 84 /min Apical BP Systolic 128 mmHg L/Arm Reg Cuff BP Diastolic 80 mmHg L/Arm Reg Cuff BMI (Body Mass Index) 28.3 kg/m2 Ejection Fraction 50-55% Echocardiogram 11/18/2016 05/09/2017 9:00am Weight 207.00 lb Heart Rate 98 /min irregular BP Systolic 122 mmHg BP Diastolic 72 mmHg Body Temperature 97.6 F O2 % BldC Oximetry 99 % 02/15/2017 12:40pm Weight 197.00 lb with shoes Heart Rate 80 /min BP Systolic Sitting 126 mmHg LA reg cuff BP Diastolic Sitting 80 mmHg LA reg cuff Ejection Fraction 50%-55% echo 11/18/16 02/15/2017 11:05am Weight 197.25 lb Heart Rate 95 /min BP Systolic 110 mmHg BP Diastolic 68 mmHg Body Temperature 98.3 F O2 % BldC Oximetry 97 % 02/03/2017 9:28am Height 71 inches 5'11" Weight 197.00 lb Heart Rate 86 /min BP Systolic Sitting 128 mmHg BP Diastolic Sitting 86 mmHg BMI (Body Mass Index) 27.5 kg/m2 01/24/2017 4:05pm Weight 197.50 lb Heart Rate 64 /min BP Systolic 132 mmHg BP Diastolic 72 mmHg Body Temperature 98.1 F O2 % BldC Oximetry 96 % 01/18/2017 3:04pm Height 71 inches 5'11" Weight 194.25 lb with shoes Heart Rate 106 /min BP Systolic Sitting 126 mmHg LA reg cuff BP Diastolic Sitting 82 mmHg LA reg cuff BMI (Body Mass Index) 27.1 kg/m2 Ejection Fraction 50%-55% echo 11/18/16 11/25/2016 2:37pm Height 71 inches 5'11" Weight 188.00 lb w/ shoes Heart Rate 76 /min reg BP Systolic Sitting 110 mmHg Rue, reg cuff BP Diastolic Sitting 76 mmHg Rue, reg cuff Respiratory Rate 16 /min BMI (Body Mass Index) 26.2 kg/m2 Ejection Fraction 50-55% as of 11/18/16 echo 10/19/2016 9:13am Height 71 inches 5'11" Heart Rate 96 /min irreg BP Systolic Sitting 138 mmHg Lue reg cuff BP Diastolic Sitting 70 mmHg Lue reg cuff Respiratory Rate 18 /min 10/18/2016 11:07am Height 71 inches 5'11" Weight 183.00 lb Heart Rate 82 /min BP Systolic Sitting 120 mmHg BP Diastolic Sitting 80 mmHg Pain Level 4 BMI (Body Mass Index) 25.5 kg/m2 10/11/2016 8:54am Height 71 inches 5'11" Weight 179.31 lb Heart Rate 77 /min BP Systolic 110 mmHg BP Diastolic 68 mmHg Body Temperature 96.8 F O2 % BldC Oximetry 99 % BMI (Body Mass Index) 25.0 kg/m2 10/01/2016 4:32pm Weight 182.75 lb Heart Rate 94 /min BP Systolic 120 mmHg BP Diastolic 80 mmHg Body Temperature 98.2 F O2 % BldC Oximetry 99 % 04/09/2016 8:29am Height 70.75 inches 5'10.75" Weight 183.00 lb Heart Rate 58 /min BP Systolic 118 mmHg BP Diastolic 60 mmHg Body Temperature 97.5 F O2 % BldC Oximetry 98 % BMI (Body Mass Index) 25.7 kg/m2 02/04/2016 8:42am Height 70.75 inches 5'10.75" Weight 177.00 lb Heart Rate 56 /min BP Systolic Sitting 126 mmHg BP Diastolic Sitting 78 mmHg BMI (Body Mass Index) 24.9 kg/m2 12/25/2015 12:51pm Height 70.75 inches 5'10.75" Weight 177.00 lb Heart Rate 72 /min BP Systolic Sitting 128 mmHg BP Diastolic Sitting 80 mmHg BMI (Body Mass Index) 24.9 kg/m2 10/07/2015 9:39am Height 70.75 inches 5'10.75" Weight 176.00 lb Heart Rate 52 /min BP Systolic Sitting 128 mmHg BP Diastolic Sitting 84 mmHg Respiratory Rate 15 /min Body Temperature 97.3 F O2 % BldC Oximetry 97 % BMI (Body Mass Index) 24.7 kg/m2 04/08/2015 8:36am Height 71 inches 5'11" Weight 185.00 lb Heart Rate 56 /min BP Systolic Sitting 140 mmHg BP Diastolic Sitting 78 mmHg BP Systolic Recheck 128 mmHg BP Diastolic Recheck 72 mmHg Body Temperature 98.3 F O2 % BldC Oximetry 97 % BMI (Body Mass Index) 25.8 kg/m2 10/04/2014 3:21pm Weight 176.00 lb Heart Rate 71 /min BP Systolic Sitting 131 mmHg BP Diastolic Sitting 79 mmHg Body Temperature 97.2 F 04/05/2014 8:26am Height 71 inches 5'11" Weight 175.00 lb Heart Rate 61 /min BP Systolic Sitting 122 mmHg BP Diastolic Sitting 70 mmHg O2 % BldC Oximetry 97 % BMI (Body Mass Index) 24.4 kg/m2 10/02/2013 1:44pm Height 71 inches 5'11" Weight 169.50 lb Heart Rate 68 /min BP Systolic Sitting 110 mmHg BP Diastolic Sitting 68 mmHg Body Temperature 98.2 F BMI (Body Mass Index) 23.6 kg/m2 04/04/2013 1:10pm Weight 175.00 lb Heart Rate 64 /min BP Systolic Sitting 134 mmHg BP Diastolic Sitting 80 mmHg 10/02/2012 2:28pm Height 71 inches 5'11" Weight 171.00 lb Heart Rate 64 /min BP Systolic Sitting 136 mmHg BP Diastolic Sitting 74 mmHg BMI (Body Mass Index) 23.8 kg/m2 02/16/2012 8:37am Height 70.5 inches 5'10.50" Weight 182.00 lb Heart Rate 58 /min BP Systolic Sitting 132 mmHg BP Diastolic Sitting 80 mmHg BMI (Body Mass Index) 25.7 kg/m2 08/16/2011 8:32am Height 70.5 inches 5'10.50" Weight 177.00 lb Heart Rate 56 /min BP Systolic Sitting 118 mmHg BP Diastolic Sitting 68 mmHg BMI (Body Mass Index) 25.0 kg/m2 02/12/2011 8:38am Height 70.5 inches 5'10.50" Weight 168.25 lb Heart Rate 64 /min BP Systolic Sitting 136 mmHg l BP Diastolic Sitting 78 mmHg l BMI (Body Mass Index) 23.8 kg/m2 08/12/2010 8:32am Height 70.5 inches 5'10.50" Weight 164.25 lb Heart Rate 60 /min BP Systolic Sitting 120 mmHg L BP Diastolic Sitting 82 mmHg L BMI (Body Mass Index) 23.2 kg/m2 05/26/2010 8:44am Weight 161.00 lb Heart Rate 90 /min irregular BP Systolic 142 mmHg BP Diastolic 84 mmHg 03/17/2010 2:55pm Weight 168.00 lb Heart Rate 84 /min BP Systolic 128 mmHg BP Diastolic 70 mmHg 02/09/2010 8:45am Weight 166.75 lb Heart Rate 60 /min irregular BP Systolic 118 mmHg BP Diastolic 70 mmHg Results Test Date Facility Test Result H/L Range Note Comp Metabolic Panel 09/09/2017 [facility] Sodium 137 mmol/L N [address] [place] [address] [phone] Potassium 4.3 mmol/L N 3.5-5.0 Chloride 102 mmol/L N 101-111 Co2 Carbon Dioxide 26 mmol/L N 22-32 Anion Gap 9 mmol/L N 2-11 Glucose 81 mg/dL N 70-100 Blood Urea Nitrogen 20 mg/dL N 6-24 Creatinine 1.24 mg/dL High 0.67-1.17 BUN/Creatinine Ratio 16.1 N 8-20 Calcium 10.0 mg/dL N 8.6-10.3 Total Protein 7.3 g/dL N 6.4-8.9 Albumin 4.2 g/dL N 3.2-5.2 Globulin 3.1 g/dL N 2-4 Albumin/Globulin Ratio 1.4 N 1-3 Total Bilirubin 0.40 mg/dL N 0.2-1.0 Alkaline Phosphatase 70 U/L N 34-104 Alt 14 U/L N 7-52 Ast 16 U/L N 13-39 Egfr Non- 58.0 >60 Egfr 74.6 >60 1 Laboratory 09/09/2017 [facility] TSH (Thyroid 3.31 N 0.34- 5.[address] Stim Horm) mcIU/[place] [address] [phone] Lipid Profile 05/02/2017 [facility] Triglycerides 74 mg/dL 3, 4 (Trig/Chol/HDL [address] ) [place] [address] [phone] Cholesterol 143 mg/dL 5 HDL Cholesterol 51.1 mg/dL 6 LDL Cholesterol 77 mg/dL 7 Basic Metabolic Panel 05/02/2017 [facility] Sodium 137 mmol/L N 133-145 [address] [place] [address] [phone] Potassium 4.3 mmol/L N 3.5-5.0 Chloride 103 mmol/L N 101-111 Co2 Carbon Dioxide 28 mmol/L N 22-32 Anion Gap 6 mmol/L N 2-11 Glucose 92 mg/dL N 70-100 Blood Urea Nitrogen 19 mg/dL N 6-24 Creatinine 1.25 mg/dL High 0.67-1.17 BUN/Creatinine Ratio 15.2 N 8-20 Calcium 9.3 mg/dL N 8.6-10.3 Egfr Non- 57.4 >60 Egfr 73.9 >60 8 Comp Metabolic Panel 02/16/2017 [facility] Sodium 134 mmol/L N 133-[address] [place] [address] [phone] Potassium 3.9 mmol/L N 3.5-5.0 Chloride 100 mmol/L Low 101-111 Co2 Carbon Dioxide 29 mmol/L N 22-32 Anion Gap 5 mmol/L N 2-11 Glucose 95 mg/dL N 70-100 Blood Urea Nitrogen 20 mg/dL N 6-24 Creatinine 1.20 mg/dL High 0.67-1.17 BUN/Creatinine Ratio 16.7 N 8-20 Calcium 10.0 mg/dL N 8.6-10.3 Total Protein 6.9 g/dL N 6.4-8.9 Albumin 4.1 g/dL N 3.2-5.2 Globulin 2.8 g/dL N 2-4 Albumin/Globulin Ratio 1.5 N 1-3 Total Bilirubin 0.90 mg/dL N 0.2-1.0 Alkaline Phosphatase 88 U/L N 34-104 Alt 14 U/L N 7-52 Ast 16 U/L N 13-39 Egfr Non- 60.2 >60 Egfr 77.4 >60 9 Laboratory test 02/16/2017 [facility] Magnesium 1.9 mg/dL N 1.9-2.7 finding [address] [place] [address] [phone] Urinalysis Profile 01/18/2017 [facility] Urine Color Yellow N [address] [facility] [place] [address] [phone] Urine Appearance Clear N Urine Specific Steele 1.012 N 1.010-1.030 Urine pH 5.0 N 5-9 Urine Urobilinogen Negative N Negative Urine Ketones Negative N Negative Urine Protein Negative N Negative Urine Leukocytes Negative N Negative Urine Blood Negative N Negative Urine Nitrite Negative N Negative Urine Bilirubin Negative N Negative Urine Glucose Negative N Negative Inr/Protime 01/18/2017 [facility] Inr 0.98 N 0.89-1.[address] [place] [address] [phone] Laboratory test 01/18/2017 [facility] Partial 33.4 seconds N 26.0-36.[address] [place] [address] PTT [phone] D Dimer Quantitative < 200 ng/mL N Less Than 230 10 CBC Auto Diff 01/18/2017 [facility] White Blood 8.7 10^3/uL N 3.5-10.[address] [place] [address] [phone] Red Blood Count 4.87 10^6/uL N 4.0-5.4 Hemoglobin 14.7 g/dL N 14.0-18.0 Hematocrit 44 % N 42-52 Mean Corpuscular Volume 90 fL N 80-94 Mean Corpuscular Hemoglobin 30 pg N 27-31 Mean Corpuscular HGB Conc 34 g/dL N 31-36 Red Cell Distribution Width 14 % N 10.5-15 Platelet Count 244 10^3/uL N 150-450 Mean Platelet Volume 8 um3 N 7.4-10.4 Abs Neutrophils 5.2 10^3/uL N 1.5-7.7 Abs Lymphocytes 2.5 10^3/uL N 1.0-4.8 Abs Monocytes 0.8 10^3/uL N 0-0.8 Abs Eosinophils 0.2 10^3/uL N 0-0.6 Abs Basophils 0.1 10^3/uL N 0-0.2 Abs Nucleated RBC 0.01 10^3/uL N Granulocyte % 59.9 % N 38-83 Lymphocyte % 28.1 % N 25-47 Monocyte % 9.2 % High 1-9 Eosinophil % 2.1 % N 0-6 Basophil % 0.7 % N 0-2 Nucleated Red Blood Cells % 0.1 N Laboratory test 01/18/2017 [facility] Lactic Acid 1.0 mmol/L N 0.5-2.0 11 finding [address] [place] [address] [phone] B-Type Natriuretic Peptide BNP 96 pg/mL N 12 Troponin-I (TnI) 0.00 ng/mL N <0.04 CKMB 01/18/2017 [facility] CKMB ng/mL 2.7 ng/mL N 0.6-6.3 [address] [place] [address] [phone] Comp Metabolic 01/18/2017 [facility] Sodium 136 mmol/L N 133- 145 [address] [place] [address] [phone] Potassium 4.3 mmol/L N 3.5-5.0 Chloride 102 mmol/L N 101-111 Co2 Carbon Dioxide 28 mmol/L N 22-32 Anion Gap 6 mmol/L N 2-11 Glucose 86 mg/dL N 70-100 Blood Urea Nitrogen 21 mg/dL N 6-24 Creatinine 1.20 mg/dL High 0.67-1.17 BUN/Creatinine Ratio 17.5 N 8-20 Calcium 9.4 mg/dL N 8.6-10.3 Total Protein 7.1 g/dL N 6.4-8.9 Albumin 4.1 g/dL N 3.2-5.2 Globulin 3.0 g/dL N 2-4 Albumin/Globulin Ratio 1.4 N 1-3 Total Bilirubin 0.40 mg/dL N 0.2-1.0 Alkaline Phosphatase 75 U/L N 34-104 Alt 11 U/L N 7-52 Ast 14 U/L N 13-39 Egfr Non- 60.2 N >60 Egfr 77.4 N >60 13 Laboratory test 01/18/2017 [facility] Magnesium 2.0 mg/dL N 1.9-2.7 finding [address] [place] [address] [phone] Lipase 29 U/L N 11.0-82.0 Creatine Kinase(CK) 61 U/L N 10-223 C Reactive Protein 5.32 mg/L High < 5.00 14 TSH (Thyroid Stim Horm) 3.65 mcIU/mL N 0.34-5.60 Laboratory test 10/21/2016 [facility] TSH (Thyroid 1.80 mcIU/mL N 0.34-5.[address] Stim [place]orm) [place] [address] [phone] Comp Metabolic 10/21/2016 [facility] Sodium 137 mmol/L N 133- [address] [place] [address] [phone] Potassium 4.3 mmol/L N 3.5-5.0 Chloride 104 mmol/L N 101-111 Co2 Carbon Dioxide 26 mmol/L N 22-32 Anion Gap 7 mmol/L N 2-11 Glucose 89 mg/dL N 70-100 Blood Urea Nitrogen 20 mg/dL N 6-24 Creatinine 1.01 mg/dL N 0.67-1.17 BUN/Creatinine Ratio 19.8 N 8-20 Calcium 9.4 mg/dL N 8.6-10.3 Total Protein 6.7 g/dL N 6.4-8.9 Albumin 4.0 g/dL N 3.2-5.2 Globulin 2.7 g/dL N 2-4 Albumin/Globulin Ratio 1.5 N 1-3 Total Bilirubin 0.50 mg/dL N 0.2-1.0 Alkaline Phosphatase 94 U/L N 34-104 Alt 12 U/L N 7-52 Ast 13 U/L N 13-39 Egfr Non- 73.7 N >60 Egfr 94.8 N >60 15 Order 10/11/2016 [facility] In-House EKG results given to [employer] Laboratory test 08/06/2016 [facility] Surgical SEE RESULT 16, [address] [place] [address] [phone] Comp Metabolic 04/02/2016 [facility] Sodium 132 mmol/L Low 133 -[address] [place] [address] [phone] Potassium 4.3 mmol/L N 3.5-5.0 Chloride 102 mmol/L N 101-111 Co2 Carbon Dioxide 29 mmol/L N 22-32 Anion Gap 1 mmol/L Low 2-11 Glucose 104 mg/dL High 70-100 Blood Urea Nitrogen 23 mg/dL N 6-24 Creatinine 1.30 mg/dL High 0.67-1.17 BUN/Creatinine Ratio 17.7 N 8-20 Calcium 9.8 mg/dL N 8.6-10.3 Total Protein 6.9 g/dL N 6.4-8.9 Albumin 4.4 g/dL N 3.2-5.2 Globulin 2.5 g/dL N 2-4 Albumin/Globulin Ratio 1.8 N 1-3 Total Bilirubin 0.50 mg/dL N 0.2-1.0 Alkaline Phosphatase 71 U/L N 34-104 Alt 16 U/L N 7-52 Ast 17 U/L N 13-39 Egfr Non- 55.1 N >60 Egfr 70.8 N >60 18 Laboratory test 01/30/2016 [facility] Point of Care 98 mg/dL N 74-106 [address] [place] [address] [phone] Laboratory test 12/25/2015 [facility] Hemoglobin A1c 5.6 % N Less than [address] (Glyco HGB) 6.0 [place] [address] [phone] Protein 12/25/2015 [facility] Total 7.2 g/dL N 6.3 - 7.[address] Protein([place]ep) [place] [address] [phone] Albumin 3.6 g/dL N 3.4-4.7 Alpha-1 Globulin 0.3 g/dL N 0.1-0.3 Alpha-2 Globulin 1.1 g/dL Abnormal 0.6-1.0 Beta Globulin 0.9 g/dL N 0.7-1.2 Gamma Globulin 1.3 g/dL N 0.6-1.6 Albumin/Globulin Ratio 1.00 N Impression See Comment N 21 Laboratory test 12/25/2015 [facility] TSH (Thyroid 1.68 mcIU/mL N 0.34-5.60 [address] Stim [place]orm) [place] [address] [phone] Vitamin B12 248 pg/mL N 180-914 23 Folic Acid (Folate) > 20.00 ng/mL N >3.99 24 Erythrocyte Sed Rate 13 mm/Hr N 0-40 25 Lipid Profile 09/30/2015 [facility] Triglycerides 69 mg/dL N 26, 27 (Trig/Chol/HDL) [address] [place] [address] [phone] Cholesterol 136 mg/dL N 28 HDL Cholesterol 50.6 mg/dL N 29 LDL Cholesterol 72 mg/dL N 30 Comp Metabolic Panel 09/30/2015 [facility] Sodium 136 mmol/L N 133-145 [address] [place] [address] [phone] Potassium 4.2 mmol/L N 3.5-5.0 Chloride 103 mmol/L N 101-111 Co2 Carbon Dioxide 29 mmol/L N 22-32 Anion Gap 4 mmol/L N 2-11 Glucose 93 mg/dL N 70-100 Blood Urea Nitrogen 16 mg/dL N 6-24 Creatinine 1.11 mg/dL N 0.67-1.17 BUN/Creatinine Ratio 14.4 N 8-20 Calcium 9.5 mg/dL N 8.6-10.3 Total Protein 6.7 g/dL N 6.4-8.9 Albumin 4.0 g/dL N 3.2-5.2 Globulin 2.7 g/dL N 2-4 Albumin/Globulin Ratio 1.5 N 1-3 Total Bilirubin 0.40 mg/dL N 0.2-1.0 Alkaline Phosphatase 63 U/L N 34-104 Alt 12 U/L N 7-52 Ast 15 U/L N 13-39 Egfr Non- 66.3 N >60 Egfr 85.2 N >60 31 Comp Metabolic Panel 04/01/2015 [facility] Sodium 136 mmol/L N 133-145 [address] [place] [address] [phone] Potassium 4.2 mmol/L N 3.5-5.0 Chloride 101 mmol/L N 101-111 Co2 Carbon Dioxide 28 mmol/L N 22-32 Anion Gap 7 mmol/L N 2-11 Glucose 96 mg/dL N 70-100 Blood Urea Nitrogen 18 mg/dL N 6-24 Creatinine 1.16 mg/dL N 0.67-1.17 BUN/Creatinine Ratio 15.5 N 8-20 Calcium 9.9 mg/dL N 8.6-10.3 Total Protein 7.3 g/dL N 6.4-8.9 Albumin 4.4 g/dL N 3.2-5.2 Globulin 2.9 g/dL N 2-4 Albumin/Globulin Ratio 1.5 N 1-3 Total Bilirubin 0.50 mg/dL N 0.2-1.0 Alkaline Phosphatase 77 U/L N 34-104 Alt 18 U/L N 7-52 Ast 17 U/L N 13-39 Egfr Non- 63.0 N >60 Egfr 81.0 N >60 32 Comp Metabolic Panel 03/29/2014 [facility] Sodium 134 mmol/L N 133-[address] [place] [address] [phone] Potassium 4.7 mmol/L N 3.5-5.0 Chloride 99 mmol/L Low 101-111 Co2 Carbon Dioxide 30 mmol/L N 22-32 Anion Gap 5 mmol/L N 2-11 Glucose 88 mg/dL N 70-100 Blood Urea Nitrogen 20 mg/dL N 6-24 Creatinine 1.09 mg/dL N 0.67-1.17 BUN/Creatinine Ratio 18.3 N 8-20 Calcium 9.7 mg/dL N 8.6-10.3 Total Protein 6.9 g/dL N 6.4-8.9 Albumin 4.1 g/dL N 3.2-5.2 Globulin 2.8 g/dL N 2-4 Albumin/Globulin Ratio 1.5 N 1-3 Total Bilirubin 0.60 mg/dL N 0.2-1.0 Alkaline Phosphatase 86 U/L N 34-104 Alt 9 U/L N 7-52 Ast 13 U/L N 13-39 Egfr Non- 67.9 N >60 Egfr 87.3 N >60 34 Lipid Profile 03/29/2014 [facility] Triglycerides 49 mg/dL N 35 (Trig/Chol/HDL) [address] [place] [address] [phone] Cholesterol 149 mg/dL N 36 HDL Cholesterol 50.9 mg/dL N 37 LDL Cholesterol 88 mg/dL N 38 Laboratory 10/05/2013 [facility] Hepatitis C Nonreactive N Nonreactive test finding [address] [place] [address] [phone] Lipid Profile 08/31/2012 [facility] Triglycerides 41 mg/dL 40 -200 (Trig/Chol/HD [address]) [place], [place] [id number] [phone] Cholesterol 145 mg/dL Less than 200 HDL Cholesterol 64 mg/dL High 40-60 39 Cholesterol/HDL Ratio 2.3 Average 1-4.44 LDL Cholesterol 72.8 Less Than 100 40 Comp Metabolic Panel 08/31/2012 [facility] Sodium 138 mmol/L 133-145 [address] [place] [address] [phone] Potassium 4.6 mmol/L 3.5-5.0 Chloride 105 mmol/L 101-111 Co2 Carbon Dioxide 28.0 mmol/L 22-32 Anion Gap 5.0 mmol/L 2-11 Glucose 94 mg/dL 70-100 Blood Urea Nitrogen 19 mg/dL 6-24 Creatinine 0.90 mg/dL 0.50-1.40 BUN/Creatinine Ratio 21.1 High 8-20 Calcium 10.0 mg/dL High 8.1-9.9 Total Protein 6.3 g/dL 6.2-8.1 Albumin 4.1 g/dL 3.2-5.2 Globulin 2.2 g/dL 2-4 Albumin/Globulin Ratio 1.9 1-3 Total Bilirubin 0.7 mg/dL 0.4-1.5 Alkaline Phosphatase 69 U/L 30-110 Alt 16 U/L 14-54 Ast 19 U/L 12-42 Egfr Non- 85.2 >60 Egfr 109.6 >60 41 Laboratory test 08/16/2011 [facility] PSA 0.29 NG/ML 0-4 42 finding [address] [place] [address] [phone] Lipid Profile 08/16/2011 [facility] Triglyceride 48 mg/dL 40- 200 (Trig/Chol/HDL) [address] [place] [address] [phone] Cholesterol 160 mg/dL Less Than 200 43 High Density Lipoprotein 58 mg/dL 40-60 44 Cholesterol/HDL Ratio 2.76 AVERAGE 1-4.97 Low Density Lipoprotein 92 mg/dL Less Than 100 45 Comp Metabolic Panel 08/16/2011 [facility] Sodium 138 mmol/L 135-145 [address] [place] [address] [phone] Potassium 3.9 mmol/L 3.5-5.0 Chloride 103 mmol/L 101-111 Co2 (Carbon Dioxide) 30.0 mmol/L 22-32 Anion Gap 5.0 mmol/L 2-11 46 Glucose 88 mg/dL 70-100 BUN 20 mg/dL 6-24 Creatinine 1.1 mg/dL 0.50-1.40 One Over Creatinine 0.90 BUN/Creatinine Ratio 18.2 8-20 Calcium 9.4 mg/dL 8.1-9.9 Total Protein 6.4 GM/DL 6.2-8.1 Albumin 4.1 GM/DL 3.2-5.2 Globulin 2.3 GM/DL 2-4 Albumin/Globulin Ratio 1.8 1-3 Bilirubin Total 0.5 mg/dL 0.4-1.5 47 Alkaline Phosphatase 68 U/L 39-117 Alt (SGPT) 13 U/L Low 17-63 Ast (Sgot) 18 U/L 12-42 eGFR Non- 67.8 > 60 eGFR 87.2 > 60 48 1 Because ethnic data is not always readily available, this report includes an eGFR for both -Americans and non- Americans. The National Kidney Disease Education Program (NKDEP) does not endorse the use of the MDRD equation for patients that are not between the ages of 18 and 70, are , have extremes of body size, muscle mass, or nutritional status, or are non- or non-. According to the National Kidney Foundation, irrespective of diagnosis, the stage of the disease is based on the level of kidney function: Stage Description GFR(mL/min/1.73 m(2)) 1 Kidney damage with normal or decreased GFR 90 2 Kidney damage with mild decrease in GFR 60-89 3 Moderate decrease in GFR 30-59 4 Severe decrease in GFR 15-29 5 Kidney failure <15 (or dialysis) 2 Copy Result to: BINDU VARGAS ([id number]) 3 FASTING 10 HOUR 4 Desirable: <150 Borderline High: 150-199 High: 200-499 Very High: >500 5 Desirable: <200 Borderline High: 200-239 High: >239 6 Low: <40 Desirable: 40-60 High: >60 7 Desirable: <100 Near Optimal: 100-129 Borderline High: 130-159 High: 160-189 Very High: >189 8 Because ethnic data is not always readily available, this report includes an eGFR for both -Americans and non- Americans. The National Kidney Disease Education Program (NKDEP) does not endorse the use of the MDRD equation for patients that are not between the ages of 18 and 70, are , have extremes of body size, muscle mass, or nutritional status, or are non- or non-. According to the National Kidney Foundation, irrespective of diagnosis, the stage of the disease is based on the level of kidney function: Stage Description GFR(mL/min/1.73 m(2)) 1 Kidney damage with normal or decreased GFR 90 2 Kidney damage with mild decrease in GFR 60-89 3 Moderate decrease in GFR 30-59 4 Severe decrease in GFR 15-29 5 Kidney failure <15 (or dialysis) 9 Because ethnic data is not always readily available, this report includes an eGFR for both -Americans and non- Americans. The National Kidney Disease Education Program (NKDEP) does not endorse the use of the MDRD equation for patients that are not between the ages of 18 and 70, are , have extremes of body size, muscle mass, or nutritional status, or are non- or non-. According to the National Kidney Foundation, irrespective of diagnosis, the stage of the disease is based on the level of kidney function: Stage Description GFR(mL/min/1.73 m(2)) 1 Kidney damage with normal or decreased GFR 90 2 Kidney damage with mild decrease in GFR 60-89 3 Moderate decrease in GFR 30-59 4 Severe decrease in GFR 15-29 5 Kidney failure <15 (or dialysis) 10 Please note: The following may produce a false positive D Dimer test: - Rheumatoid factor greater than 60 IU/ml - Plasma hemoglobin greater than 0.05 gm/dl - Bilirubin greater than 50 mg/dl - Lipids greater than 1000 mg/dl - FDP greater than 20 ug/ml 11 [facility] Severe Sepsis and Septic Shock Management Bundle Measure requires all lactic acids initially measuring >2.0 mmol/L be repeated. 12 >100 to <200 pg/mL: likely compensated congestive heart failure (CHF) 200 to 400 pg/mL: likely moderate CHF >400 pg/mL: likely moderate to severe CHF 13 Because ethnic data is not always readily available, this report includes an eGFR for both -Americans and non- Americans. The National Kidney Disease Education Program (NKDEP) does not endorse the use of the MDRD equation for patients that are not between the ages of 18 and 70, are , have extremes of body size, muscle mass, or nutritional status, or are non- or non-. According to the National Kidney Foundation, irrespective of diagnosis, the stage of the disease is based on the level of kidney function: Stage Description GFR(mL/min/1.73 m(2)) 1 Kidney damage with normal or decreased GFR 90 2 Kidney damage with mild decrease in GFR 60-89 3 Moderate decrease in GFR 30-59 4 Severe decrease in GFR 15-29 5 Kidney failure <15 (or dialysis) 14 Acute inflammation: >10.00 15 Because ethnic data is not always readily available, this report includes an eGFR for both -Americans and non- Americans. The National Kidney Disease Education Program (NKDEP) does not endorse the use of the MDRD equation for patients that are not between the ages of 18 and 70, are , have extremes of body size, muscle mass, or nutritional status, or are non- or non-. According to the National Kidney Foundation, irrespective of diagnosis, the stage of the disease is based on the level of kidney function: Stage Description GFR(mL/min/1.73 m(2)) 1 Kidney damage with normal or decreased GFR 90 2 Kidney damage with mild decrease in GFR 60-89 3 Moderate decrease in GFR 30-59 4 Severe decrease in GFR 15-29 5 Kidney failure <15 (or dialysis) 16 [id number] 17 SEE RESULT BELOW Name: SALMA GUILLORY : [address]: Dino Le MD Acct: [id number] Unit: [id number] AGE: 66 Location: [facility] Re08/06/16 SEX: M Status: DEP REF SPEC: [id number] MAREN: 08/06/16-[address] [facility] [address]: Dino Le MD REQ: [id number] RECD: 08/06/16 STATUS: DIANN FERGUSON DR: Bindu Hawley [employer] _ ORDERED: LEVEL 4 COMMENTS: [id number] FINAL DIAGNOSIS Gastroesophageal junction, biopsy: -- Gastroesophageal junction zone mucosa with mild reflux esophagitis and focal goblet cell/intestinal metaplasia. -- No dysplasia identified. CLINICAL HISTORY Gastroesophageal reflux disease POST-OPERATIVE DIAGNOSIS Esophagus - slight irregularity to gastroesophageal junction, biopsied, no erosion/stricture; stomach - 3-4 cm hiatal hernia; duodenum - normal bulb to third portion. Conclusions/Plan: Hiatal hernia GROSS DESCRIPTION The specimen is received in formalin labeled, [place] Biopsies, and consists of two ferris-pink irregular soft tissue fragments measuring 0.4 by up to 0.2 x 0.1 cm and 0.4 x 0.2 x 0.2 cm which are submitted entirely in one cassette. Signed (signature on file) John King MD 1259 END OF REPORT * ML=Testing performed at Main Lab DEPARTMENT OF PATHOLOGY, [address] [place] [address] John King M.D. Director [facility] # [id number] 18 Because ethnic data is not always readily available, this report includes an eGFR for both -Americans and non- Americans. The National Kidney Disease Education Program (NKDEP) does not endorse the use of the MDRD equation for patients that are not between the ages of 18 and 70, are , have extremes of body size, muscle mass, or nutritional status, or are non- or non-. According to the National Kidney Foundation, irrespective of diagnosis, the stage of the disease is based on the level of kidney function: Stage Description GFR(mL/min/1.73 m(2)) 1 Kidney damage with normal or decreased GFR 90 2 Kidney damage with mild decrease in GFR 60-89 3 Moderate decrease in GFR 30-59 4 Severe decrease in GFR 15-29 5 Kidney failure <15 (or dialysis) 19 [employer]isher: [id number] HWAK WILLIAMSON 20 Therapeutic target for the treatment of diabetes Mellitus patients is <7% HBA1C, and in selective patients <6.0%.Please refer to [place] [employer] Diabetic care guidelines for further information. 21 RESULT: No apparent monoclonal protein on serum electrophoresis. Test Performed by: [place] [address] Acquisition Editor: Bartolo Mabry II, M.D., Ph.D. 22 with immunofixation Copy Result to: ITALO HAWLEY NP ([id number]) 23 Normal Range 180 to 914 Indeterminate Range 145 to 180 Deficient Range <145 24 with immunofixation Copy Result to: ITALO HAWLEY NP ([id number]) 25 with immunofixation Copy Result to: ITALO HAWLEY NP ([id number]) 26 [facility] [id number] 27 Desirable <150 Borderline high 150-199 High 200-499 Very High >500 28 Desirable <200 Borderline high 200-239 High >239 29 Low <40 Desirable: 40-60 High: >60 30 Desirable: <100 mg/dL Near Optimal: 100-129 mg/dL Borderline High: 130-159 mg/dL High: 160-189 mg/dL Very High: >189 mg/dL 31 Because ethnic data is not always readily available, this report includes an eGFR for both -Americans and non- Americans. The National Kidney Disease Education Program (NKDEP) does not endorse the use of the MDRD equation for patients that are not between the ages of 18 and 70, are , have extremes of body size, muscle mass, or nutritional status, or are non- or non-. According to the National Kidney Foundation, irrespective of diagnosis, the stage of the disease is based on the level of kidney function: Stage Description GFR(mL/min/1.73 m(2)) 1 Kidney damage with normal or decreased GFR 90 2 Kidney damage with mild decrease in GFR 60-89 3 Moderate decrease in GFR 30-59 4 Severe decrease in GFR 15-29 5 Kidney failure <15 (or dialysis) 32 Because ethnic data is not always readily available, this report includes an eGFR for both -Americans and non- Americans. The National Kidney Disease Education Program (NKDEP) does not endorse the use of the MDRD equation for patients that are not between the ages of 18 and 70, are , have extremes of body size, muscle mass, or nutritional status, or are non- or non-. According to the National Kidney Foundation, irrespective of diagnosis, the stage of the disease is based on the level of kidney function: Stage Description GFR(mL/min/1.73 m(2)) 1 Kidney damage with normal or decreased GFR 90 2 Kidney damage with mild decrease in GFR 60-89 3 Moderate decrease in GFR 30-59 4 Severe decrease in GFR 15-29 5 Kidney failure <15 (or dialysis) 33 FASTING 10 HOUR 34 Because ethnic data is not always readily available, this report includes an eGFR for both -Americans and non- Americans. The National Kidney Disease Education Program (NKDEP) does not endorse the use of the MDRD equation for patients that are not between the ages of 18 and 70, are , have extremes of body size, muscle mass, or nutritional status, or are non- or non-. According to the National Kidney Foundation, irrespective of diagnosis, the stage of the disease is based on the level of kidney function: Stage Description GFR(mL/min/1.73 m(2)) 1 Kidney damage with normal or decreased GFR 90 2 Kidney damage with mild decrease in GFR 60-89 3 Moderate decrease in GFR 30-59 4 Severe decrease in GFR 15-29 5 Kidney failure <15 (or dialysis) 35 Desirable <150 Borderline high 150-199 High 200-499 Very High >500 36 Desirable <200 Borderline high 200-239 High >239 37 Low <40 Desirable: 40-60 High: >60 38 Desirable <100 Near Optimal 100-129 Borderline high 130-159 High 160-189 Very High >189 39 HDL Interpretation: Undesirable: High Risk: Less than 40 mg/dL Desirable: Low Risk: Greater than 60 mg/dL 40 LDL Interpretation: Low Risk Optimal Level: LDL Less than 100 mg/dL Near or Above Optimal: LDL 100-129 mg/dL Borderline High Risk: LDL 130-159 mg/dL High Risk: LDL 160-189 mg/dL Very High Risk: LDL Greater than 189 mg/dL 41 Because ethnic data is not always readily available, this report includes an eGFR for both -Americans and non- Americans. The National Kidney Disease Education Program (NKDEP) does not endorse the use of the MDRD equation for patients that are not between the ages of 18 and 70, are , have extremes of body size, muscle mass, or nutritional status, or are non- or non-. According to the National Kidney Foundation, irrespective of diagnosis, the stage of the disease is based on the level of kidney function: Stage Description GFR(mL/min/1.73 m(2)) 1 Kidney damage with normal or decreased GFR 90 2 Kidney damage with mild decrease in GFR 60-89 3 Moderate decrease in GFR 30-59 4 Severe decrease in GFR 15-29 5 Kidney failure <15 (or dialysis) 42 * SERUM LEVELS OF PSA MEASURED USING THE [employer] ACCESS HYBRITECH IMMUNOASSAY SHOULD NOT BE INTERPRETED ABSOLUTE EVIDENCE OF THE PRESENCE OR ABSENCE OF DISEASE. THE PSA VALUE SHOULD BE USED IN CONJUNCTION WITH OTHER PERTINENT CLINICAL DIAGNOSTIC PROCEDURES. A PSA value in the range of 0.1 to 0.6 ng/ml is indeterminate if being used as an indicator of recurrent or residual disease. . The values obtained with different assay methods of kits cannot be used interchangeably. 43 CHOLESTEROL INTERPRETATION: Desirable: Less than 200 MG/DL Borderline-High Risk: 200-239 MG/DL High-Risk: 240 MG/DL and over 44 HDL INTERPRETATION: Undesirable: High Risk: Less than 40 MG/DL Desirable: Low Risk: Greater than 60 MG/DL 45 LDL INTERPRETATION: Low Risk Optimal Level: LDL Less than 100 MG/DL Near or Above Optimal: LDL 100-129 MG/DL Borderline High Risk: LDL 130-159 MG/DL High Risk: LDL 160-189 MG/DL Very High Risk: LDL Greater than 189 MG/DL 46 Anion gap measurement may be of limited value in the presence of any alkalosis, especially in a combined acid base disorder. . 47 A metabolite of Naproxen, O-desmethylnaproxen, has been shown to interfere with the Jendrassik-Hertford method for measuring total bilirubin. Samples from patients who have taken Naproxen have shown spurious elevation in total bilirubin levels. 48 Because ethnic data is not always readily available, this report includes an eGFR for both -Americans and non- Americans. The National Kidney Disease Education Program (NKDEP) does not endorse the use of the MDRD equation for patients that are not between the ages of 18 and 70, are , have extremes of body size, muscle mass, or nutritional status, or are non- or non-. According to the National Kidney Foundation, irrespective of diagnosis, the stage of the disease is based on the level of kidney function: Stage Description GFR(mL/min/1.73 m(2)) 1 Kidney damage with normal or decreased GFR 90 2 Kidney damage with mild decrease in GFR 60-89 3 Moderate decrease in GFR 30-59 4 Severe decrease in GFR 15-29 5 Kidney failure <15 (or dialysis) Procedures Date Code Description Status 05/24/2018 25942 Polysomnography Sleep Staging 4+ Parameters W/Cpap Completed 01/08/2018 78690 Holter Monitor Review (24 hr)dr review & interp only Completed 01/05/2018 89779 ECG Monitor/Recording W/Visual Superimposition Completed Scanning 01/05/2018 04908 ECG Monitor/Recording W/Visual Superimposition Completed Scanning 10/05/2017 17638 EKG Tracing & Interpretation Completed 09/12/2017 39441 EKG, Interpretation Only Completed 09/12/2017 27965 Cardioversion Completed 09/09/2017 49094 EKG Tracing & Interpretation Completed 08/26/2017 79163 EKG Tracing & Interpretation Completed 05/11/2017 29557 EKG Tracing & Interpretation Completed 03/09/2017 75579 Holter Monitor Review (24 hr)dr review & interp only Completed 03/08/2017 00275 ECG Monitor/Recording W/Visual Superimposition Completed Scanning 03/02/2017 02575 Moderate Sedation Services; Same Phys Intl 15 Mins; PT Completed >=5 Years 03/02/2017 61254 EKG, Interpretation Only Completed 03/02/2017 61448 Cardioversion Completed 02/15/2017 95932 EKG Tracing & Interpretation Completed 02/15/2017 02212 Cardioversion Completed 02/02/2017 [id number] Bone Mineral Density Test Completed 01/21/2017 62714 EKG, Interpretation Only Completed 01/20/2017 24076 EKG, Interpretation Only Completed 01/19/2017 53411 Cardioversion Completed 01/19/2017 26316 EKG, Interpretation Only Completed 01/19/2017 93386 Moderate Sedation Services; Same Phys Intl 15 Mins; PT Completed >=5 Years 01/18/2017 26748 EKG Tracing & Interpretation Completed 01/05/2017 80821 EKG, Interpretation Only Completed 01/05/2017 10182 Cardioversion Completed 11/18/2016 54894 ECHO Transthoracic, Real-Time 2D With Doppler And Completed Color Flow 11/16/2016 18074 ECHO Stress Test Incl Perf Contiuous ekg Monitoring Completed W/Phys Superv 10/26/2016 30290 Color Flow Doppler/Interp & Reprt Completed 10/26/2016 87299 Pulse Wave/Continuous-Interp.RPT Completed 10/26/2016 24223 Echocardiography, Transesophageal, Real Time W/Image Completed 2D W/W/O M-M 10/24/2016 64148 Holter Monitor Review (24 hr)dr review & interp only Completed 10/19/2016 44791 EKG Tracing & Interpretation Completed 10/14/2016 75130 ECG Monitor/Recording W/Visual Superimposition Completed Scanning 10/11/2016 95702 EKG Tracing & Interpretation Completed 04/14/2016 78023277 Colonoscopy Completed 10/09/2015 50388 Nerve Conduction 09-10 Studies Completed 10/09/2015 21623 Needle Electromyography Each Extremity W/Related Completed Paraspinal Areas 08/12/2010 87923 EKG Tracing & Interpretation Completed 08/11/2010 [id number] Mammogram Completed 05/13/2008 35674087 Colonoscopy Completed 04/22/2008 28802 EKG Tracing & Interpretation Completed Encounters Type Date Location Provider Dx Diagnosis Office Visit 04/27/2018 Pulmonology And [place] [place], G47.33 Obstructive sleep 2:00p Sleep Services Of [facility] apnea (adult) [facility] (pediatric) Office Visit 04/21/2018 [facility] Internal Italo Hawley, I10 Essential (primary ) 10:20a Medicine - N.P. hypertension [place] Z23 Encounter for immunization Z12.11 Encounter for screening for malignant neoplasm of colon Office Visit 01/09/2018 Debra Ward S. F17.211 Nicotine 8:40a Mahamed Velasquez M.D. dependence, cigarettes, in remission I48.4 Atypical atrial flutter I10 Essential (primary) hypertension E66.9 Obesity, unspecified G47.33 Obstructive sleep apnea (adult) (pediatric) Office Visit 10/14/2017 2:20p [facility] Internal Italo Hawley, Z00.00 Encntr for Medicine - N.P. general adult [place] medical exam w/o abnormal findings I48.1 Persistent atrial fibrillation I10 Essential (primary) hypertension G47.33 Obstructive sleep apnea (adult) (pediatric) M81.0 Age-related osteoporosis w/o current pathological fracture F17.211 Nicotine dependence, cigarettes, in remission Office Visit 10/05/2017 Debra Ward S. I48.92 Unspecified 1:20p Mahamed Velasquez M.D. atrial flutter I48.1 Persistent atrial fibrillation I10 Essential (primary) hypertension I34.0 Nonrheumatic mitral (valve) insufficiency Office Visit 09/09/2017 12:30p [facility] Marianna Milian, I48.4 Atypical atrial Of Daniela Morales flutter I48.1 Persistent atrial fibrillation Office Visit 08/26/2017 9:00a [facility] Aleshia STru I10 Essential ( primary) Of [facility] Stefan N.PTru hypertension I48.1 Persistent atrial fibrillation I34.0 Nonrheumatic mitral (valve) insufficiency I36.1 Nonrheumatic tricuspid (valve) insufficiency Office Visit 05/11/2017 3:00p [facility] Sylvia STru I10 Essential Carmen Velasquez (primary) hypertension I48.1 Persistent atrial fibrillation I34.0 Nonrheumatic mitral (valve) insufficiency I36.1 Nonrheumatic tricuspid (valve) insufficiency Office Visit 05/09/2017 9:00a [facility] Internal Italo Hawley, I10 Essential ( primary) Medicine N.P. hypertension R21 Rash and other nonspecific skin eruption I48.1 Persistent atrial fibrillation Office Visit 02/15/2017 [place] Sylvia S. I48.1 Persistent atrial 1:00p Cardiology Carmen Velasquez fibrillation R94.31 Abnormal electrocardiogram [ECG] [EKG] I34.0 Nonrheumatic mitral (valve) insufficiency I36.1 Nonrheumatic tricuspid (valve) insufficiency Office Visit 02/15/2017 [facility] Internal Medicine Italo M81.0 Age-related 11:20a Varn, N.P. 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 (primary) hypertension I48.1 Persistent atrial fibrillation S22.009A Unsp fracture of unsp thoracic vertebra, init for clos fx Office Visit 01/21/2017 [facility] Luiz Randall, I48.92 Unspecified 10:03a purnima Hernandez M.D. atrial flutter Hospitalists Office Visit 01/20/2017 [facility] Luiz Randall I48.92 Unspecified 10:02a purnima Hernandez M.D. atrial flutter Hospitalists Office Visit 01/19/2017 [facility] Luiz Randall I48.92 Unspecified 10:02a purnima Hernandez M.D. atrial flutter Hospitalists Office Visit 01/19/2017 [facility] Marianna Milian I48.0 Paroxysmal atrial 4:39p Of Daniela Morales fibrillation Office Visit 01/18/2017 [facility] Raf Ballesteros I48.92 Unspecified 10:01a purnima Hernandez II, M.D. atrial flutter Hospitalists Office Visit 01/18/2017 [facility] Sylvia Castrejon. I48.1 Persistent atrial 3:20p Carmen Velasquez fibrillation I10 Essential (primary) hypertension G47.33 Obstructive sleep apnea (adult) (pediatric) I48.91 Unspecified atrial fibrillation Office Visit 11/25/2016 Holland Carranzaozzie S. I48.1 Persistent atrial 3:20p Cardiology Of Carmen Velasquez fibrillation [facility] I10 Essential (primary) hypertension F15.90 Other stimulant use, unspecified, uncomplicated G47.33 Obstructive sleep apnea (adult) (pediatric) Office Visit 10/19/2016 Debra Carranzaozzie S. I48.1 Persistent atrial 10:00a Cardiology Carmen Velasquez fibrillation I10 Essential (primary) hypertension G47.33 Obstructive sleep apnea (adult) (pediatric) I49.3 Ventricular premature depolarization Office Visit 10/18/2016 11:45a Neurosurgery Tiffany Araya, M48.06 [facility] Of [facility] stenosis, lumbar region Office Visit 10/11/2016 9:40a [facility] Internal Italo Hawley, Z00.01 Encounter for Medicine N.P. general adult medical exam w abnormal findings I10 Essential (primary) hypertension G47.33 Obstructive sleep apnea (adult) (pediatric) K21.0 Gastro-esophageal reflux disease with esophagitis F17.210 Nicotine dependence, cigarettes, uncomplicated I48.1 Persistent atrial fibrillation Z23 Encounter for immunization Office Visit 10/01/2016 4:20p [facility] Internal Italo Hawley, M54.5 Low back pain Medicine N.P. M54.17 Radiculopathy, lumbosacral region Office Visit 04/09/2016 8:40a [facility] Internal Italo Hawley, I10 Essential ( primary) Medicine N.P. hypertension G47.33 Obstructive sleep apnea (adult) (pediatric) Office 02/04/2016 Neurohospitalist Lynda G62.9 Polyneuropathy, Visit 9:00a Clinic CHIDI Minaya unspecified Office 12/25/2015 Neurohospitalist Richard G62.9 Polyneuropathy, Visit 1:00p Clinic MD Jazmine unspecified Office 10/07/2015 [facility] Internal Italo Z00.00 Encntr for general Visit 10:00a Medicine Marleen, N.P. adult medical exam w/o abnormal findings I10 Essential (primary) hypertension G47.33 Obstructive sleep apnea (adult) (pediatric) R20.2 Paresthesia of skin M79.672 Pain in left foot F17.210 Nicotine dependence, cigarettes, uncomplicated Z23 Encounter for immunization Office Visit 04/08/2015 8:40a [facility] Internal Italo Hawley, I10 Essential ( primary) Medicine N.P. hypertension Office Visit 10/04/2014 3:20p [facility] Internal Italo Hawley, V70.0 Examination General Medicine N.P. Medical Routine AT [facility] 401.1 Hypertension Benign 327.23 Obstructive Sleep Apnea Adult & Pediatric Office Visit 04/05/2014 8:40a [facility] Internal Italo Varevette, 401.1 Hypertension Benign Medicine N.P. Office Visit 10/02/2013 1:40p [facility] Internal Italo Hawley, V70.0 Examination General Medicine N.P. Medical Routine AT Health Care Facility 401.1 Hypertension Benign 327.23 Obstructive Sleep Apnea Adult & Pediatric Office Visit 04/04/2013 1:00p [facility] Internal Italo Hawley, 401.1 Hypertension Benign Medicine N.P. Office Visit 10/02/2012 3:00p [facility] [facility] Italo Hawley, V70.0 Examination General Medicine N.P. Medical Routine AT [facility] 401.1 Hypertension Benign 327.23 Obstructive Sleep Apnea Adult & Pediatric 338.4 Chronic Pain Syndrome Office Visit 02/16/2012 8:40a [facility] Internal Italo Varn, 401.1 Hypertension Benign Medicine N.P. V04.81 Need For Prophylactic Vaccination & Inoculation/Influenza Office Visit 08/16/2011 8:40a [facility] Internal Italo Hawley, V70.0 Examination Medicine N.P. General Medical Routine AT [facility] 401.1 Hypertension Benign 327.23 Obstructive Sleep Apnea Adult & Pediatric Office Visit 02/12/2011 DO Not Use Italo Varn, 401.1 Hypertension 8:40a [facility] N.P. Benign Office Visit 08/12/2010 DO Not Use Italo Varn, V70.0 Examination 8:40a [facility] N.P. General Medical Routine AT Health Care Facility 401.1 Hypertension Benign Office Visit 06/29/2010 10:45a Neurosurgery Berny Hernández 729.5 [facility] Carmen Gutierrez Office Visit 06/19/2010 9:00a Neurosurgery Berny Hernández 724.3 Sciatica [facility] Carmen Gutierrez Office Visit 05/26/2010 9:00a DO Not Use Italo Varn, 724.5 Backache Unspec [facility] N.P. 729.2 Neuralgia Neuritis & Radiculitis Unspec Office Visit 03/17/2010 DO Not Use Italo Varn, 720.2 Sacroiliitis Not 3:00p [facility] N.P. Elsewhere Classified 724.3 Sciatica Office Visit 02/09/2010 DO Not Use Italo Varn, 401.1 Hypertension 8:45a [facility] N.P. Benign Office Visit 08/11/2009 DO Not Use Italo Varn, V70.0 Examination 8:45a [facility] N.P. General Medical Routine AT [facility] 401.1 Hypertension Benign Office Visit 02/03/2009 DO Not Use Italo Varn, 401.1 Hypertension 8:30a [facility] N.P. Benign Office Visit 06/03/2008 DO Not Use Abril Masha, 401.1 Hypertension 9:45a [facility] F[facility] Benign Plan of Treatment Future Appointment(s):10/13/2018 9:00 am - Eboni Sheldon NP at [facility]09/29/2018 3:20 pm - Sylvia Velasquez M.D. at [place] Qofbyggqfu95/26/2019 1:00 pm - Italo Hawley, N.P. at [facility] Internal Cpryzsze44/08/2019 - Eboni Sheldon NPG47.33 Obstructive sleep apnea (adult) (pediatric)Follow up:3 monthsRecommendations:If you have any sleepiness while driving you MUST avoid operating a vehicle or machinery. If you find yourself opening your mouth with the nasal mask we can order a chin strap for you Zellies lozenges or biotene can also help with dry mouth If you have difficulty with your equipment, or need to replace your mask or hoses, please contact your homecare agency. If you have any further questions, please call the [facility] at [phone]
[2018-08-12 07:42] VITALS: BP 121/75
[2018-08-12] MEDS ORDERED: DOXYcycline CAP(*) 100 MG PO ONE (08:14)
== END 2018-08-12 08:25 | disposition home or self-care (01) ==
LOC: UCEAST 07:19
DX: S30.861A Insect bite (nonvenomous) of abdominal wall, initial encounter (principal); W57.XXXA Bitten or stung by nonvenomous insect and other nonvenomous arthropods, initial encounter; Y92.9 Unspecified place or not applicable; I10 Essential (primary) hypertension
CPT/HCPCS: 99212; A9270-GY; G0463

== ENCOUNTER 2021-07-23 09:20 | Inpatient (IN) ==
[2021-07-23 09:45] LABS: ABS Eosinophils 0.1 10^3/ul (0-0.6); ABS Lymphocytes 1.4 10^3/ul (1.0-4.8); ABS Monocytes 0.8 10^3/ul (0-0.8); ABS Neutrophils 4.8 10^3/ul (1.5-7.7); Eosinophil % 1.8 %; Hematocrit 40 % (42-52); Hemoglobin 13.7 g/dL (14.0-18.0); Lymphocyte % 19.9 %; Mean Corpuscular HGB Conc 34 g/dL (31-36); Mean Corpuscular Hemoglobin 31 pg (27-31); Mean Corpuscular Volume 91 fL (80-94); Mean Platelet Volume 8.3 fL (7.4-10.4); Platelet Count 227 10^3/uL (150-450); Red Blood Count 4.45 10^6 /uL (4.18-5.48); Red Cell Distribution Width 14 % (10-15); White Blood Count 7.2 10^3/uL (3.5-10.8)
[2021-07-23 09:52] LABS: INR 1.78 (0.86-1.15)
[2021-07-23 10:30] LABS: Albumin 3.8 g/dL (3.2-5.2); Albumin/Globulin Ratio 1.4 (1-3); Calcium 9.1 mg/dL (8.6-10.3); Globulin 2.8 g/dL (2-4); Potassium 3.8 mmol/L (3.5-5.0); Total Bilirubin 0.4 mg/dL (0.2-1.0); Total Protein 6.6 g/dL (6.4-8.9); eGFR CKD-EPI 58.4 (>60)
[2021-07-23 11:15] LABS: High Sensitivity Troponin 1 Hr 21 pg/mL (<20)
[2021-07-23 11:36] LABS: Magnesium 1.9 mg/dL (1.9-2.7)
[2021-07-23 11:51] LABS: TSH Ultra Thyroid Stim Horm 1.47 mcIU/mL (0.34-5.60)
[2021-07-23 11:53] LABS: Free T4 1.3 ng/dL (0.61-1.12)
[2021-07-23] MEDS ORDERED: Metoprolol Tartrate 5 mg VIAL 5 ml VIAL (1 mg/ml) IV ONE ×2 (13:09→14:46)
[2021-07-23] MEDS ORDERED: Potassium Chlor 20 meq TAB.ER PO ONE (14:57)
[2021-07-23] MEDS ORDERED: Magnesium Sulfate 2 gm BAG 2 GM/50 ML BAG IVPB ONE (14:57)
[2021-07-23] MEDS ORDERED: Warfarin per PHARMACY **NOTE FOLLOW UP SCH (15:00)
[2021-07-23] MEDS ORDERED: Lactated Ringers 500 ml BAG 500 ML IV ONE (15:11)
[2021-07-24 05:56] LABS: Hematocrit 38 % (42-52); Hemoglobin 13.2 g/dL (14.0-18.0); Mean Corpuscular HGB Conc 34 g/dL (31-36); Mean Corpuscular Hemoglobin 31 pg (27-31); Mean Corpuscular Volume 91 fL (80-94); Mean Platelet Volume 8.8 fL (7.4-10.4); Platelet Count 197 10^3/uL (150-450); Red Blood Count 4.25 10^6 /uL (4.18-5.48); Red Cell Distribution Width 15 % (10-15); White Blood Count 7.8 10^3/uL (3.5-10.8)
[2021-07-24 06:01] LABS: INR 1.88 (0.86-1.15)
[2021-07-24 06:24] LABS: Magnesium 2.1 mg/dL (1.9-2.7); eGFR CKD-EPI 56.3 (>60)
[2021-07-24] MEDS ORDERED: Perflutren Lipid Microsphere 3 ML VIAL ONE (14:14)
[2021-07-24] MEDS ORDERED: Lactated Ringers 1000 ml BAG 1,000 ML IV SCH (15:00)
[2021-07-24] MEDS ORDERED: Warfarin DAILY REMINDER **NOTE FOLLOW UP SCH (17:00)
[2021-07-24] MEDS ORDERED: Metoprolol Tartrate 5 mg VIAL 5 ml VIAL (1 mg/ml) IV ONE ×2 (17:20→17:46)
[2021-07-24] MEDS ORDERED: Metoprolol Tartrate 5 mg VIAL 5 ml VIAL (1 mg/ml) IV PRN (21:00)
[2021-07-25 06:56] LABS: Hematocrit 38 % (42-52); Hemoglobin 12.8 g/dL (14.0-18.0); Mean Corpuscular HGB Conc 33 g/dL (31-36); Mean Corpuscular Hemoglobin 30 pg (27-31); Mean Corpuscular Volume 91 fL (80-94); Mean Platelet Volume 9.3 fL (7.4-10.4); Platelet Count 159 10^3/uL (150-450); Red Blood Count 4.24 10^6 /uL (4.18-5.48); Red Cell Distribution Width 15 % (10-15); White Blood Count 6.7 10^3/uL (3.5-10.8)
[2021-07-25 07:12] LABS: Calcium 8.7 mg/dL (8.6-10.3); Magnesium 1.9 mg/dL (1.9-2.7); Potassium 4.1 mmol/L (3.5-5.0); eGFR CKD-EPI 61.2 (>60)
[2021-07-25] MEDS ORDERED: Magnesium Sulfate IV 1GM/100ML 1 GM/100 ML BAG IV ONE (07:22)
[2021-07-25] MEDS ORDERED: Metoprolol Tartrate 5 mg VIAL 5 ml VIAL (1 mg/ml) IV PRN (07:23)
[2021-07-25] MEDS ORDERED: Diltiazem IV push/loading dose 5 MG/ML 5 ML vial (25 mg) IV SLOW PU ONE (07:24)
[2021-07-25 11:22] VITALS: BP 109/67
== END 2021-07-25 13:30 | disposition home or self-care (01) | DRG 309 ==
LOC: ED 09:20 → EDHOLD 14:40 → MEDTELE 17:52
PROVIDERS: ADMIT Student in an Organized Health Care Education/Training Program; ATTEND Internal Medicine